=== PATIENT | female | born 1995 | race Caucasian/White ===

== ENCOUNTER 2018-01-31 09:14 | Emergency (ER) | payer BC, OTHER ==
[2018-01-31] MEDS ORDERED: SUCRALFATE 1 GM TABLET PO ONE (10:30)
[2018-01-31] MEDS ORDERED: MAGNE/ALUM HYDROXD 30 ML UCUP ONE (11:05)
[2018-01-31] MEDS ORDERED: LIDOCAINE VISCOUS 2% SOLN 15 ML UDC ONE (11:06)
--- NOTE | 2018-01-31 11:13 | RAD REPORT ---
EXAM DESCRIPTION: US - Abdomen Exam Limited - 01/31/2018 10:31 am COMPARISON: None. FINDINGS: Gallbladder size is normal. No gallstones, wall thickening or pericholecystic fluid. Commo n bile duct is normal with no common duct stone identified. The liver and spleen show no suspicious f indings. The pancreas is normal. No hydronephrosis or suspicious mass in either kidney Aorta is normal is size. No ascites or bulky lymphadenopathy. IMPRESSION: Normal abdominal ultrasound.
--- NOTE | 2018-01-31 11:31 | ER ---
Nurse's Notes [facility] Name: Cameron Rudolph Age: 22 yrs Sex: Female : 1995 Arrival Date: 01/31/2018 Time: 09:19 Bed 20 Private MD: None, None Diagnosis: Gastritis, unspecified Presentation: 01/31 09:26 Presenting complaint: Patient states: Epigastric pain and nausea that started Sunday, sg progressive getting worse, denies F/V/D, denies urinary symptoms at this time. Transition of care: patient was not received from another setting of care. Onset of symptoms was January 31, 2018. Risk Assessment: Do you want to hurt yourself or someone else? Patient reports no desire to harm self or others. Initial Sepsis Screen: Does the patient meet any 2 criteria? No. Patient's initial sepsis screen is negative. Does the patient have a suspected source of infection? No. Patient's initial sepsis screen is negative. Care prior to arrival: None. 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 - Social history:: Smoking status: Patient uses tobacco products, denies chronic smoking, but will smoke occasionally. - Ebola Screening: : Patient negative for fever greater than or equal to 101.5 degrees Fahrenheit, and additional compatible Ebola Virus Disease symptoms Patient denies exposure to infectious person Patient denies travel to an Ebola-affected area in the 21 days before illness onset No symptoms or risks identified at this time. Screenin:00 Abuse screen: Denies threats or abuse. Denies injuries from another. Nutritional aj1 screening: No deficits noted. Tuberculosis screening: No symptoms or risk factors identified. 11:25 Fall Risk None identified. aj1 Assessment: 10:00 General: Appears in no apparent distress. uncomfortable, Behavior is calm, cooperative, aj1 appropriate for age. Pain: Complains of pain in epigastric area and right upper quadrant Pain does not radiate. Pain currently is 2 out of 10 on a pain scale. at worst was 5 out of 10 on a pain scale. Quality of pain is described as "twisting" Pain began 5 days ago Is intermittent, Alleviated by laying in the position. Neuro: Level of Consciousness is awake, alert, obeys commands, Oriented to person, place, time, situation, Speech is normal, Facial symmetry appears normal. Cardiovascular: Patient's skin is warm and dry. Respiratory: Airway is patent Respiratory effort is even, unlabored, Respiratory pattern is regular, symmetrical. GI: Abdomen is flat, non-distended, Bowel sounds present X 4 quads. Abd is soft X 4 quads Abdomen is tender to palpation in epigastric area and right upper quadrant Reports diarrhea, nausea, Patient currently denies vomiting. : No signs and/or symptoms were reported regarding the genitourinary system. EENT: No signs and/or symptoms were reported regarding the EENT system. Derm: No signs and/or symptoms reported regarding the dermatologic system. Skin is pink, warm \\T\\ dry. normal. Musculoskeletal: No signs and/or symptoms reported regarding the musculoskeletal system. Circulation, motion, and sensation intact. 10:10 Reassessment: Patient states that she does not want to do blood work, because she does aj1 not want to be stuck again. If she has to have blood work she would rather just leave. Notified Liang Singh NP. 11:07 Reassessment: Patient appears in no apparent distress at this time. No changes from aj1 previously documented assessment. Patient and/or family updated on plan of care and expected duration. Pain level reassessed. Patient is alert, oriented x 3, equal unlabored respirations, skin warm/dry/pink. 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 Patient declines states she is leaving now. Vital Signs: 09:27 BP 112 / 68; Pulse 91; Resp 17; Temp 99.0; Pulse Ox 99% on R/A; Weight 54.43 kg; Height sg 5 ft. 3 in. (160.02 cm); Pain 5/10; 11:08 BP 116 / 61; Pulse 80; Resp 18; Pulse Ox 99% on R/A; aj1 09:27 Body Mass Index 21.26 (54.43 kg, 160.02 cm) ED Course: 09:19 Patient arrived in ED. sb2 09:19 None, None is Private Physician. sb2 09:26 Arm band placed on. ss 09:27 Triage completed. sg 09:41 Urine collected: clean catch specimen, clear. sg 09:55 Jenn Singh FNP-C is PHCP. snw 09:55 Les Stanford MD is Attending Physician. snw 09:55 Kyra Taylor, RN is Primary Nurse. aj1 10:00 Patient has correct armband on for positive identification. Bed in low position. Call aj1 light in reach. Side rails up X 1. 10:00 No provider procedures requiring assistance completed. aj1 10:05 Missed attempt(s): 20 gauge in right antecubital area. Bleeding controlled, band aid aj1 applied, catheter tip intact. 10:10 Missed attempt(s): 22 gauge in right forearm. Bleeding controlled, band aid applied, aj1 catheter tip intact. 10:31 US Abdomen Limited In Process Unspecified. EDMS 11:25 Patient did not have IV access during this emergency room visit. aj1 Administered Medications: 11:06 Drug: CarafATE 1 grams Route: PO; aj1 11:49 Follow up: Response: No adverse reaction aj1 11:06 Drug: GI Cocktail without - (Maalox Suspension 30 ml, Lidocaine Liquid 2 % 15 aj1 ml) Route: PO; 11:49 Follow up: Response: No adverse reaction aj1 Outcome: 11:25 Discharged to home ambulatory. aj1 11:25 Discharge instructions given to no one, patient left prior to paperwork 11:30 Discharge ordered by . snw 11:40 Patient left the ED. ss Signatures: Dispatcher [employer] EDIL Kyra Taylor, RN RN aj1 Talha Cleaning RN RN Jenn Singh FNP-C FNP-Shannan Good RN RN Christin Collado sb2
--- NOTE | 2018-01-31 11:31 | EDPHYS ---
Physician Documentation [facility] Name: Cameron Rudolph Age: 22 yrs Sex: Female : 1995 Arrival Date: 01/31/2018 Time: 09:19 Bed 20 Private MD: None, None ED Physician Les Stanford HPI: 01/31 11:32 This 22 yrs old Female presents to ER via Ambulatory with complaints of snw Abdominal Pain. 11:32 The patient presents with abdominal pain in the epigastric area. Onset: The snw symptoms/episode began/occurred this morning. The symptoms do not radiate. Associated signs and symptoms: Pertinent positives: intermittent diarrhea for 3-4 days. The symptoms are described as crampy, twisting abdominal pain to epigastric area this am, nausea, no vomiting, no fever. Severity of pain: At its worst the pain was moderate. The patient has not experienced similar symptoms in the past. It is unknown whether or not the patient has recently seen a physician. 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 - Social history:: Smoking status: Patient uses tobacco products, denies chronic smoking, but will smoke occasionally. - Ebola Screening: : Patient negative for fever greater than or equal to 101.5 degrees Fahrenheit, and additional compatible Ebola Virus Disease symptoms Patient denies exposure to infectious person Patient denies travel to an Ebola-affected area in the 21 days before illness onset No symptoms or risks identified at this time. ROS: 11:32 Constitutional: Negative for fever, chills, and weight loss, Eyes: Negative for injury, snw pain, redness, and discharge, ENT: Negative for injury, pain, and discharge, Neck: Negative for injury, pain, and swelling, Cardiovascular: Negative for chest pain, palpitations, and edema, Respiratory: Negative for shortness of breath, cough, wheezing, and pleuritic chest pain, Back: Negative for injury and pain, : Negative for injury, bleeding, discharge, and swelling, MS/Extremity: Negative for injury and deformity, Skin: Negative for injury, rash, and discoloration, Neuro: Negative for headache, weakness, numbness, tingling, and seizure. 11:32 Abdomen/GI: Positive for abdominal pain, diarrhea. Exam: 11:31 Constitutional: This is a well developed, well nourished patient who is awake, alert, snw and in no acute distress. Head/Face: Normocephalic, atraumatic. Eyes: Pupils equal round and reactive to light, extra-ocular motions intact. Lids and lashes normal. Conjunctiva and sclera are non-icteric and not injected. Cornea within normal limits. Periorbital areas with no swelling, redness, or edema. ENT: Nares patent. No nasal discharge, no septal abnormalities noted. Tympanic membranes are normal and external auditory canals are clear. Oropharynx with no redness, swelling, or masses, exudates, or evidence of obstruction, uvula midline. Mucous membranes moist. Neck: Trachea midline, no thyromegaly or masses palpated, and no cervical lymphadenopathy. Supple, full range of motion without nuchal rigidity, or vertebral point tenderness. No Meningismus. Chest/axilla: Normal chest wall appearance and motion. Nontender with no deformity. No lesions are appreciated. Cardiovascular: Regular rate and rhythm with a normal S1 and S2. No gallops, murmurs, or rubs. Normal PMI, no JVD. No pulse deficits. Respiratory: Lungs have equal breath sounds bilaterally, clear to auscultation and percussion. No rales, rhonchi or wheezes noted. No increased work of breathing, no retractions or nasal flaring. Back: No spinal tenderness. No costovertebral tenderness. Full range of motion. Skin: Warm, dry with normal turgor. Normal color with no rashes, no lesions, and no evidence of cellulitis. MS/ Extremity: Pulses equal, no cyanosis. Neurovascular intact. Full, normal range of motion. Neuro: Awake and alert, GCS 15, oriented to person, place, time, and situation. Cranial nerves II-XII grossly intact. Motor strength 5/5 in all extremities. Sensory grossly intact. Cerebellar exam normal. Normal gait. Psych: Awake, alert, with orientation to person, place and time. Behavior, mood, and affect are within normal limits. 11:31 Abdomen/GI: Inspection: abdomen appears normal, Bowel sounds: normal, Palpation: moderate abdominal tenderness, in the epigastric area. Vital Signs: 09:27 BP 112 / 68; Pulse 91; Resp 17; Temp 99.0; Pulse Ox 99% on R/A; Weight 54.43 kg; Height sg 5 ft. 3 in. (160.02 cm); Pain 5/10; 11:08 BP 116 / 61; Pulse 80; Resp 18; Pulse Ox 99% on R/A; aj1 09:27 Body Mass Index 21.26 (54.43 kg, 160.02 cm) sg MDM: 10:10 Patient medically screened. snw 11:33 Data reviewed: vital signs, nurses notes. Data interpreted: Pulse oximetry: on room air snw is 99 %. Interpretation: normal. Counseling: I had a detailed discussion with the patient and/or guardian regarding: the historical points, exam findings, and any diagnostic results supporting the discharge/admit diagnosis, radiology results, the need for outpatient follow up, to return to the emergency department if symptoms worsen or persist or if there are any questions or concerns that arise at home. Special discussion: Based on the patient's Hx, exam, and Dx evaluation, there is no indication for emergent surgery or inpatient Tx. It is understood by the patient/guardian that if the Sx's persist or worsen they need to return immediately for re-evaluation. Based on the history and exam findings, there is no indication for further emergent testing or inpatient evaluation. I discussed with the patient/guardian the need to see the equipment washer for further evaluation of the symptoms. I discussed with the patient/guardian the need to see the primary care provider for further evaluation of the symptoms. 01/31 09:42 Order name: Urine Dipstick--Ancillary (enter results) em1 01/31 09:42 Order name: Urine --Ancillary (enter results) em1 01/31 09:42 Order name: Urine Dipstick-Ancillary (obtain specimen); Complete Time: 09:42 em1 01/31 10:16 Order name: US Abdomen Limited; Complete Time: 11:15 snw 01/31 09:42 Order name: Urine Test (obtain specimen); Complete Time: 09:42 em1 Administered Medications: 11:06 Drug: CarafATE 1 grams Route: PO; aj1 11:49 Follow up: Response: No adverse reaction aj1 11:06 Drug: GI Cocktail without - (Maalox Suspension 30 ml, Lidocaine Liquid 2 % 15 aj1 ml) Route: PO; 11:49 Follow up: Response: No adverse reaction aj1 Disposition: 15:03 Co-signature as Attending Physician, Les Stanford MD. rn Disposition: 01/31/18 11:30 Discharged to Home. Impression: Gastritis, unspecified. - Condition is Stable. - Discharge Instructions: Food Choices to Help Relieve Diarrhea, Adult, Gastritis, Adult. - Prescriptions for Nexium 20 mg Oral Capsule - take 1 capsule by ORAL route once daily; 20 capsule. - Medication Reconciliation Form, Thank You Letter, Antibiotic Education, Prescription Opioid Use form. - Follow up: Private Physician; When: 2 - 3 days; Reason: Recheck today's complaints, Continuance of care, Re-evaluation by your physician. Follow up: Emergency Department; When: As needed; Reason: Worsening of condition. Signatures: Dispatcher [employer] EDKyra Monte RN RN aj1 Talha Cleaning RN RN Jenn Singh, WATER FILTRATION TECHNICIAN-C WATER FILTRATION TECHNICIAN-Csnw Les Stanford MD MD rn Martinez, Juan Luis em1 Shannan Siegel RN RN ss Corrections: (The following items were deleted from the chart) 11:40 11:30 01/31/2018 11:30 Discharged to Home. Impression: Gastritis, unspecified. ss Condition is Stable. Forms are Medication Reconciliation Form, Thank You Letter, Antibiotic Education, Prescription Opioid Use. Follow up: Private Physician; When: 2 - 3 days; Reason: Recheck today's complaints, Continuance of care, Re-evaluation by your physician. Follow up: Emergency Department; When: As needed; Reason: Worsening of condition. snw
[2018-01-31 13:43] LABS: Urine Blood NEGATIVE (NEG); Urine Glucose NEGATIVE (NEG); Urine Protein NEGATIVE (NEG); Urine Specific Gravity 1.025 (1.005-1.030); Urine pH 5.5 (5.0-7.0)
== END 2018-01-31 11:40 | disposition home or self-care (01) ==
LOC: ER 09:14
DX: K29.70 Gastritis, unspecified, without bleeding (principal); F17.200 Nicotine dependence, unspecified, uncomplicated
CPT/HCPCS: 76705; 81003; 81025; 99283

== ENCOUNTER 2019-08-26 16:48 | Emergency (ER) | payer BC, OTHER ==
--- OUTSIDE RECORDS SUMMARY | 2019-08-26 16:51 | XMS REPORT | Summary of Care ---
:1995 Author Organization [facility] - Health Address [address] [place] [id number] Care Team Providers Name Role Phone Pcp, Patient Does Not Have A Primary Care Provider Encounter Details Date Type Department Care Team Description 04/12/2019 Orders Only [facility] Doctor Unassigned, No [address] [facility] [place] [address] [address] [place] [address] Allergies No Known Allergiesdocumented as of this encounter (statuses as of 04/12/2019) Medications No known medicationsdocumented as of this encounter (statuses as of 04/12/2019) Active Problems Problem Noted Date Status post surgical removal of both fallopian tubes 05/08/2018 Acute midline low back pain with left-sided sciatica 04/23/2018 Pelvic adhesions 04/18/2018 History of ectopic 04/18/2018 Anemia of mother in , antepartum 08/08/2017 Substernal chest pain 08/08/2017 Family history of cleft palate 01/17/2017 documented as of this encounter (statuses as of 04/12/2019) Resolved Problems Problem Noted Date Resolved Date Encounter for female sterilization procedure 04/18/2018 05/08/[address] 10/17/2017 05/08/2018 (spontaneous vaginal delivery) 09/06/2017 10/16/2017 Liveborn , of [place] , born in hospital by 09/06/201710/16 vaginal delivery 38 weeks gestation of 09/04/2017 10/16/2017 heart rate/rhythm abnormality, antepartum 09/04/2017 10/16/2017 heart rate/rhythm abnormality affecting management of 09/04/20172017 mother Pain of round ligament affecting , antepartum 08/08/2017 05/08/2018 High-risk , third trimester 07/25/2017 10/16/2017 GBS (group b Streptococcus) UTI complicating , 03/20/2017 10/16/2017 unspecified trimester Anxiety during in first trimester, antepartum 02/07/2017 10/16/2017 Rh negative status during , unspecified trimester 02/07/20172017 Group b Streptococcus urinary tract infection affecting 01/30/2017 10/16/2017 , antepartum, first trimester High-risk , first trimester 01/17/2017 07/25/2017 History of depression, currently 01/17/2017 05/08/2018 documented as of this encounter (statuses as of 04/12/2019) Immunizations Name Administration Dates Next Due Influenza Virus Vaccine Quad IM 3+ YRS 05/09/2017 Rho (d) Immune Globulin 09/06/2017, 06/27/2017 Tdap 07/10/2017 documented as of this encounter Social History Tobacco Use Types Packs/Day Years Used Date Light Tobacco Smoker Cigarettes 0.1 Smokeless Tobacco: Never Used Alcohol Use Drinks/Week oz/Week Comments No Sex Assigned at Date Recorded Not on file Job Start Date Occupation Industry Not on file Not on file Not on file Travel History Travel Start Travel End No recent travel history available. documented as of this encounter Last Filed Vital Signs Not on filedocumented in this encounter Plan of Treatment Date Type Specialty Care Team Description 04/12/2019 Urgent Care Family Medicine Unknown, Attending Afua Delgado FNP [address] [facility] [address] [place] [address] [id number] Health Maintenance Due Date Last Done Comments PNEUMOCOCCAL 0-64 YEARS COMBINED SERIES (1 of 1 - 12/22/1999 PPSV23) HPV VACCINES (1 - Female 3-dose series) 2008 PAP SMEAR 2014 INFLUENZA VACCINE (#1) 2019 05/09/2017 DTaP,Tdap,and Td Vaccines (2 - Td) 07/10/2027 07/10/2017 documented as of this encounter Procedures Procedure Name Priority Date/Time Associated Diagnosis Comments CONSENT/REFUSAL FOR Routine 04/12/2019 3:42 PM DIAGNOSIS AND TREATMENT CDT ASSIGNMENT OF BENEFITS Routine 04/12/2019 3:42 PM CDT documented in this encounter Results Not on filedocumented in this encounter Insurance Payer Benefit Plan / Subscriber ID Effective Phone Address Type Group Dates [facility] - [id number] 2016-Pres [phone] [address] PPO/POS OUT OF STATE ent [id number] [place] [address] [facility] [id number] 2017-Pres PPO/POS HEALTHCARE HEALTHCARE ent PPO/POS documented as of this encounter Advance Directives Name Relationship Healthcare Agent Relationship Communication Jamil Rnoni Spouse Primary healthcare agent Cherie Baldwin Mother [employer] [facility] [phone] agent (Mobile)
--- OUTSIDE RECORDS SUMMARY | 2019-08-26 16:51 | XMS REPORT ---
:1995 Author Organization [facility] Address [address] [place] [address] Dr. Willingham [address] [place] [id number] Care Team Providers Name Role Phone Unavailable Unavailable Unavailable Problems This patient has no known problems. Allergies, Adverse Reactions, Alerts This patient has no known allergies or adverse reactions. Medications This patient has no known medications.
--- OUTSIDE RECORDS SUMMARY | 2019-08-26 16:52 | XMS REPORT | Summary of Care ---
:1995 Author Organization [facility] Address [address] [place] [id number] Care Team Providers Name Role Phone Pcp, Patient Does Not Have A Primary Care Provider Reason for Visit Reason Comments STOMACH ACHE 2 weeks Vomiting 2 weeks Encounter Details Date Type Department Care Team Description 04/12/2019 Urgent Care Critical access hospital Unknown, Attending Non- intractable Urgent Care Afua Delgado, ANNAMARIA [address] [place] [address] vomiting with nausea, [address], unspecified vomiting [address] type (Primary Dx) [place] [id number] Allergies No Known Allergiesdocumented as of this encounter (statuses as of 04/12/2019) Medications Medication Sig Dispensed Refills Start Date End Date Status proMETHazine 12.5 mg Take 1 tablet by 20 tablet 0 04/12/2019 Active tabletIndications: mouth every 6 Non-intractable (six) hours as vomiting with nausea, needed for Nausea unspecified vomiting and Vomiting type (N/V). documented as of this encounter (statuses as [...] 05/08/2018 (spontaneous vaginal delivery) 09/06/2017 10/16/2017 Liveborn infant, of [place] , born in hospital by [...] of this encounter Last Filed Vital Signs Vital Sign Reading Time Taken Comments Blood Pressure 126/87 04/12/2019 3:50 PM CDT Pulse 79 04/12/2019 3:50 PM CDT Temperature 36.6 C (97.8 F) 04/12/2019 3:50 PM CDT Respiratory Rate 16 04/12/2019 3:50 PM CDT Oxygen Saturation 99% 04/12/2019 3:50 PM CDT Inhaled Oxygen Concentration - - Weight 50.8 kg (112 lb) 04/12/2019 3:50 PM CDT Height 160 cm (5' 3") 04/12/2019 3:50 PM CDT Body Mass Index 19.84 04/12/2019 3:50 PM CDT documented in this encounter Patient Instructions Patient InstructionsRaymondAfua jaramillo, ANNAMARIA - 04/12/2019 3:45 PM CDT Nonspecific Vomiting and Diarrhea (Adult) Vomiting and diarrhea can have many causes, including: Helping your body get rid of harmful substances Gastroenteritis caused by viruses, parasites,bacteria, or toxins. Allergy luis side effect ofa food or medicine Severe stress or worry (anxiety) Other illnesses It is often hard to pinpoint an exact cause, even with testing.Vomiting and diarrhea often go awaywithin a day or two without problems. If they continue, though, they can lead to too much loss of fluid (dehydration). This can be serious if not treated. Home care Medicines You may use acetaminophen or NSAID medicines like ibuprofen or naproxen to control fever, unless another medicine was prescribed. If you have chronic liver or kidney disease, talk with your healthcare provider before using these medicines. Also talk with your provider if you've had a stomach ulcer or gastrointestinal bleeding. Don't give aspirin to anyone under 18 years of age who is ill with a fever. Don't use NSAID medicines if you are already taking one for another condition (like arthritis) or are on aspirin (such as for heart disease or after a stroke) If medicines for diarrhea or vomiting were prescribed, take these only as directed. Never take these without a healthcare providers approval. General care If symptoms are severe, rest at home for the next 24 hours, or until you are feeling better. Washing your hands with soap and water, or using alcohol-based hand sanitizeris the best way tostop the spread of infection. Wash your hands after touching anyone who is sick. Wash your hands after using the toilet and before meals. Clean the toilet after each use. Caffeine, tobacco, and alcohol can make the diarrhea, cramping, and pain worse. Remember, caffeine not only isin coffee, but also isin chocolate, some energy drinks, and teas. Diet Water and clear liquids are important so you don't get dehydrated. Drink a small amount at a time. Don't guzzle down the drinks.That may increase your nausea, make cramping worse, andcause the drinksto come back up. Sports drinks may also help. Make sure they are not too sugary, because this can sometimes make things worse. Also, don't drink beverages that are too acidic , like orange juice and grape juice. If you are very dehydrated, sports drinks aren't a good choice. They have too much sugar and not enough electrolytes. In this case, commercially available products called oral rehydration solutions are best. Food Don't force yourself to eat, especially if you have cramps, diarrhea, or vomiting.Eat just a little at a time, and then wait a few minutes before you try to eat more. Don't eat fatty, greasy, spicy, or fried foods. Don't eat dairy products if you have diarrhea. They can make it worse. During the first24 hours(the first full day),follow the diet below: Beverages: Sports drinks, soft drinks without caffeine, mineral water, and decaffeinated tea and coffee Soups: Clear broth, consomm, and bouillon Desserts: Plain gelatin, popsicles, and fruit juice bars During the next 24 hours(the second day),you may add the following to the aboveif you are better. If not, continue what you did the first day: Hot cereal, plain toast, bread, rolls, crackers Plain noodles, rice, mashed potatoes, chicken noodle or rice soup Unsweetened canned fruit (avoid pineapple), bananas Limit fat intake to less than 15 grams per day by avoiding margarine, butter , oils, mayonnaise, sauces, gravies, fried foods, peanut butter, meat, poultry, and fish. Limit fiber. Avoid raw or cooked vegetables, fresh fruits (except bananas) and bran cereals. Limit caffeine and chocolate. No spices or seasonings except salt. During the next 24 hours: Gradually resume a normal diet, as you feel better and your symptoms improve. If at any timeyour symptomsstart getting worse again, go back to clear liquids until you feelbetter. Food preparation If you have diarrhea, youshould not prepare food for others. When preparing foods, wash your hands before and after. Wash your hands or use alcohol-based interior decorator paperhanging after using cutting boards, countertops, and knives that have been in contact with raw food. Keep uncooked meats away from cooked and [id number] foods. Follow-up care Follow up with your healthcare provider, or as advised. Call if you don't get better in the next 2 to 3 days. If a stool (diarrhea) sample was taken,or cultures done, you will be told if they are positive, or if your treatment needs to be changed. You may call as directed for the results. If X-rays were taken, and a radiologist has not yet looked at them, he or she will do so. You will be told if there is a change in the reading, especially if it affects yourtreatment. Call 911 Call 911 if any of these occur: Trouble breathing Chest pain Confusion Severe drowsiness or trouble awakening Fainting or loss of consciousness Rapid heart rate Seizure Stiff neck Severe weakness, dizziness, or lightheadedness When to seek medical advice Call your healthcare provider right away if any of these occur: Bloody or black vomit or stools Severe, steady abdominal pain or any abdominal pain that is getting worse Severe headache or stiff neck An inability to hold down even sips of liquids for more than 12 hours Vomiting that lasts more than 24 hours Diarrhea that lasts more than 24 hours Fever of 100.4F (38.0C) or higher, or as directed by your healthcare provider Yellowish color to your skin or the whites of your eyes Signs of dehydration,such as dry mouth, little urine (less than every 6 hours), or very dark urine Date Last Reviewed: 08/01/201519999795-6665 [employer]. [address] [place] [address], [place] [address]. All rights reserved. This information is not intended as a substitute for professional medical care. Always follow your healthcare professional's instructions. documented in this encounter Progress Notes Afua Delgado FNP - 04/12/2019 3:45 PM CDT Cc: Chief Complaint Patient presents with STOMACH ACHE 2 weeks Vomiting 2 weeks Cameron Rudolph is a 23 year old female presents to UC with concern for stomach pain and vomiting. She's been having nausea and vomiting for 2 weeks. LMP 04/03/2019. Tubal ligation 03/2018. She was taking Trileptal from psychiatry for < 2 weeks for anger management. After being on medication for about 1 weeks she started having nausea/vomiting. Her psychiatrist told her to stop medication. She still continues nausea/vomiting after being off Trileptal for 1 week. Her psychiatrist told her to follow up with PCP/UC. She has vomiting 2-3 times daily usually 30 minutes after eating. Loose BM but not watery 1-2 times daily. She's been taking otc Pepto with little relief. She's lost 14 pounds in thelast 2 weeks. She denies any abdomen pain. Denies any blood in emesis or stool. Denies any fever, chills, body aches, cough, chest pain, sob or dizziness. GI Problem The primary symptoms include weight loss, fatigue, nausea, vomiting and diarrhea. Primary symptoms do not include fever, abdominal pain, melena, hematemesis, jaundice, hematochezia, dysuria, myalgias, arthralgias or rash. The illness began more than 7 days ago. The onset was gradual. The problem has not changed since onset. The illness does not include chills, anorexia, dysphagia, bloating, constipation , back pain or itching. Associated medical issues do not include inflammatory bowel disease, gallstones, liver disease, alcohol abuse, bowel resection, irritable bowel syndrome or diverticulitis. Allergies Cameron has No Known Allergies. Medications No outpatient medications prior to visit. No facility-administered medications prior to visit. Histories Past Medical History: Diagnosis Date Anemia of mother in , antepartum 08/08/2017 Anxiety Anxiety during in first trimester, antepartum 02/07/2017 History of salpingectomy JRA (juvenile rheumatoid arthritis) Past Surgical History: Procedure Laterality Date LAPAROSCOPIC SALPINGECTOMY Bilateral 04/18/2018 Surgeon: Destinee Strong MD; Location: [facility] OR Location REMOVAL, IMPLANTABLE CONTRACEPTIVE DELIVERY SYSTEM Left 04/18/2018 Surgeon: Destinee Strong MD; Location: [facility] [place] Social History Socioeconomic History Marital status: Spouse name: Not on file Number of children: Not on file Years of education: Not on file Highest education level: Not on file Occupational History 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 Social Needs Financial resource strain: Not on file Food insecurity: Worry: Not on file Inability: Not on file Transportation needs: Medical: Not on file Non-medical: Not on file Tobacco Use Smoking status: Light Tobacco Smoker Packs/day: 0.10 Types: Cigarettes Smokeless tobacco: Never Used Substance and Sexual Activity Alcohol use: No Drug use: No Sexual activity: Yes Partners: Male control/protection: None Lifestyle Physical activity: Days per week: Not on file Minutes per session: Not on file Stress: Not on file Relationships Social connections: Talks on phone: Not on file Gets together: Not on file Attends zoroastrianism service: Not on file Active member of club or organization: Not on file Attends meetings of clubs or organizations: Not on file Relationship status: Not on file Intimate partner violence: Fear of current or ex partner: Not on file Emotionally abused: Not on file Physically abused: Not on file Forced sexual activity: Not on file Other Topics Concern Not on file Social History Narrative No domestic abuse or violence. No cats, Samaritan: none Family History Problem Relation Age of Onset Depression Mother defects Sister cleft palate Genetic Brother Depression Maternal Grandmother Arthritis Maternal Grandmother Hypertension Maternal Grandmother Depression Sister Psychiatry Sister Asthma NoFHx Breast Cancer NoFHx Colon Cancer NoFHx Ovarian Cancer NoFHx Uterine Cancer NoFHx Cancer NoFHx Diabetes NoFHx Heart NoFHx High cholesterol NoFHx Mental retardation NoFHx Neurological NoFHx Osteoporosis NoFHx Review of Systems Constitutional: Positive for fatigue and weight loss. Negative for chills and fever. Gastrointestinal: Positive for diarrhea, nausea and vomiting. Negative for abdominal pain, anorexia,bloating, constipation, dysphagia, hematemesis, hematochezia, jaundice and melena. Genitourinary: Negative for dysuria. Musculoskeletal: Negative for arthralgias, back pain and myalgias. Skin: Negative for itching and rash. Endocrine: Positive for weight loss. Vital Signs BP 126/87 | Pulse 79 | Temp 36.6 C (97.8 F) (Oral) | Resp 16 | Ht 5' 3" (1.6 m) | Wt 112 lb(50.8 kg) | LMP 04/03/2019 | SpO2 99% | BMI 19.84 kg/m Physical Exam Constitutional: She is oriented to person, place, and time. She appears well- developed and well-nourished. HENT: Head: Normocephalic and atraumatic. Right Ear: External ear normal. Left Ear: External ear normal. Nose: Nose normal. Mouth/Throat: Oropharynx is clear and moist. Eyes: Conjunctivae are normal. Neck: Normal range of motion. Neck supple. Cardiovascular: Normal rate, regular rhythm and normal heart sounds. Exam reveals no gallop and no friction rub. No murmur heard. Pulmonary/Chest: Effort normal and breath sounds normal. No respiratory distress. She has no wheezes. She has no rales. Abdominal: Soft. Normal appearance and bowel sounds are normal. She exhibits no distension. There isno hepatosplenomegaly. There is no tenderness. There is no rigidity, no rebound, no guarding, no CVAtenderness, no tenderness at McBurney' s point and negative Sims's sign. Musculoskeletal: Normal range of motion. Neurological: She is alert and oriented to person, place, and time. Skin: Skin is warm and dry. Psychiatric: She has a normal mood and affect. Her behavior is normal. Nursing note and vitals reviewed. Assessment/Plan Cameron Rudolph is a 23 year old female presents to with concern for stomach pain and vomiting. 1. Non-intractable vomiting with nausea, unspecified vomiting type - proMETHazine 12.5 mg tablet; Take 1 tablet by mouth every 6 (six) hours as needed for Nausea and Vomiting (N/V). Dispense: 20 tablet; Refill: 0 - strong ER precautions given - go to ER for dehydration or persistent projectile vomiting carlito w/ distended abdomen and/or marked/persistent abdom pain, fever, blood in stool/emesis - set up an appointment to establish care with PCP for Sunday. Needs work up. Plan of care, desired health behaviors, goals, and medication discussed with patient. Education resources provided and reviewed with AVS. Patient/guardian/family verbalized Urgent Care precautions and follow up : 1. Return to clinic if your symptoms should worsen or fail to improve within 72 hours. 2. The care provided in the urgent care was for acute problems only. 3. You should follow up with your primary care provider within 72 hours. 4. Fill and take all your medications as prescribed. 5. Make sure you are staying adequately hydrated. MAY FOLLOW-UP WITH A PROVIDER OF YOUR CHOICE, SUCH : 1. A PHYSICIAN OF YOUR CHOICE OR, IF YOU WISH TO FOLLOW-UP WITHIN THE [facility], MAY TRY THESE OPTIONS (CLINIC APPOINTMENTS AVAILABLE ON [id number] BASIS): 1. SCHEDULE AN APPOINTMENT ONLINE AT WWW.[facility] 2. OR CALL THE [facility] AT OR 3. OR CALL YOUR [facility] PHYSICIAN'S OFFICE DIRECTLY IF YOU ARE ALREADY AN ESTABLISHED [facility] PATIENT. After hours care nurse access center available by calling [phone] 24 hours 7 days per week. Afua YIN [facility] documented in this encounter Plan of Treatment Date Type Specialty Care Team Description 04/14/2019 Office Visit Family Medicine Monae Stanley FNP [address] [address] Health Maintenance Due Date Last Done Comments PNEUMOCOCCAL 0-64 YEARS COMBINED SERIES (1 of 1 - 12/22/1999 PPSV23) HPV VACCINES (1 - Female 3-dose series) 2008 PAP SMEAR 2014 INFLUENZA VACCINE (#1) 2019 05/09/2017 DTaP,Tdap,and Td Vaccines (2 - Td) 07/10/2027 07/10/2017 documented as of this encounter Results Not on filedocumented in this encounter Visit Diagnoses Diagnosis Non-intractable vomiting with nausea, unspecified vomiting type - Primary documented in this encounter Insurance Payer Benefit Plan / Subscriber ID Effective Phone Address Type Group Dates [facility] - [id number] 2016-Pres [phone] PPO/POS OUT OF STATE ent [phone] [place] [address] [facility] [id number] 2017-Pres PPO/POS [employer] ent PPO/POS documented as of this encounter Advance Directives Name Relationship Healthcare Agent Relationship Communication Jamil Rudolph Spouse Primary healthcare agent Cherie Baldwin Mother [facility] [phone] agent (Mobile)
--- OUTSIDE RECORDS SUMMARY | 2019-08-26 16:52 | XMS REPORT | Summary of Care ---
:1995 Author Organization [facility] Address [address] [place] [address] Care Team Providers Name Role Phone Pcp, Patient Does Not Have A Primary Care Provider Reason for Referral MRI/CAT Scan (PREM) Status Reason Specialty Diagnoses / Referred By Referred To Procedures Contact Contact New Request Diagnostic Diagnoses RLQ abdominal pain Vomiting and diarrhea Lizeth, Radiology Procedures CT ABDOMEN PELVIS WO CONTRAST Monae ENVIRONMENTAL WEB CRAWLER [address] [place] [address] (Routine) Status Reason Specialty Diagnoses / Referred By Referred To Procedures Contact Contact New Request Location Gastroenterology Diagnoses RLQ abdominal pain Vomiting and diarrhea Lizeth, Preference Procedures CONSULT/REFERRAL GASTROENTEROLOGY Monae ENVIRONMENTAL WEB CRAWLER [address] [place] [address] Reason for Visit Reason Comments Nausea X 2 weeks Vomiting Diarrhea LAB WORK Encounter Details Date Type Department Care Team Description 04/14/2019 Office Visit [facility] Family Lizeth, Monae, RLQ abdominal pain (Primary Dx); [facility] Vomiting and diarrhea [address] [place], [place] [address] [place] [address] [place] [id number] [phone] Allergies No Known Allergiesdocumented as of this encounter (statuses as of 04/14/2019) Medications Medication Sig Dispensed Refills Start Date End Date Status proMETHazine 12.5 mg Take 1 tablet by 20 tablet 0 04/12/2019 Active tabletIndications: mouth every 6 Non-intractable (six) hours as vomiting with nausea, needed for Nausea unspecified vomiting and Vomiting type (N/V). documented as of this encounter (statuses as of 04/14/2019) Active Problems Problem Noted Date Status post surgical removal of both fallopian tubes 05/08/2018 Acute midline low back pain with left-sided sciatica 04/23/2018 Pelvic adhesions 04/18/2018 History of ectopic 04/18/2018 Anemia of mother in , antepartum 08/08/2017 Substernal chest pain 08/08/2017 Family history of cleft palate 01/17/2017 documented as of this encounter (statuses as of 04/14/2019) Resolved Problems Problem Noted Date Resolved Date [...] as of this encounter (statuses as of 04/14/2019) Immunizations Name Administration Dates Next Due Influenza [...] Sign Reading Time Taken Comments Blood Pressure 111/75 04/14/2019 11:06 AM CDT Pulse 73 04/14/2019 11:06 AM CDT Temperature 36.8 C (98.2 F) 04/14/2019 11:06 AM CDT Respiratory Rate - - Oxygen Saturation - - Inhaled Oxygen Concentration - - Weight 51.3 kg (113 lb) 04/14/2019 11:06 AM CDT Height 160 cm (5' 3") 04/14/2019 11:06 AM CDT Body Mass Index 20.02 04/14/2019 11:06 AM CDT documented in this encounter Patient Instructions Patient InstructionsMonae Stanley FNP - 04/14/2019 11:20 AM CDT Abdominal Pain Abdominal pain is pain in the stomach or belly area. Everyone has this pain from time to time. In many cases it goes away on its own. But abdominal pain can sometimes be due to a serious problem, such as appendicitis. So its important to know when to seek help. Causes of abdominal pain There are many possible causes of abdominal pain. Common causes in adults include: Constipation, diarrhea, or gas Stomach acid flowing back up into the esophagus (acid reflux or heartburn) Severe acid reflux, called GERD (gastroesophageal reflux disease) A sore in the lining of the stomach or small intestine (peptic ulcer) Inflammation of the gallbladder, liver,or pancreas Gallstones or kidney stones Appendicitis Intestinal blockage An internal organ pushing through a muscle or other tissue (hernia) Urinary tract infections In women, menstrual cramps, fibroids, or endometriosis Inflammation or infection of the intestines Diagnosing the cause of abdominal pain Your healthcare provider will do a physical exam help find the cause of your pain. If needed, tests will be ordered. Belly pain has many possible causes. So it can be hard to find the reason for your pain. Giving details about your pain can help. Tell your provider where and when you feel the pain, and what makes it better or worse. Also let your provider know if you have other symptoms such as: Fever Tiredness Upset stomach (nausea) Vomiting Changes in bathroom habits Treating abdominal pain Some causes of pain need emergency medical treatment right away. These include appendicitis or a bowel blockage. Other problems can be treated with rest, fluids, or medicines. Your healthcare provider can give you specific instructions for treatment or self-care based on what is causing your pain. If you have vomiting or diarrhea,sip water or other clear fluids. When you are ready to eat solid foods again, start with small amounts of tkcd-pi-jdobpk, low-fat foods. These include apple sauce, toast, or crackers. When to seek medical care Call 911or go to the hospital right away if you: Cant pass stool and are vomiting Are vomiting blood or have bloody diarrhea or black, tarry diarrhea Have chest, neck, or shoulder pain Feel like you might pass out Have pain in your shoulder blades with nausea Have sudden, severe belly pain Have new, severepain unlike any you have felt before Have a belly that is rigid, hard, and tender to touch Call your healthcare provider if you have: Pain for more [id number] Bloating for more than 2days Diarrhea for more [id number] A fever of 100.4F (38C) or higher, or as directed by your healthcare provider Pain that gets worse Weight loss for no reason Continued lack of appetite Blood in your stool How to prevent abdominal pain Here are some tips to help prevent abdominal pain: Eat smaller amounts of food at one time. Avoid greasy, fried, or other high-fat foods. Avoid foods that give you gas. Exercise regularly. Drink plenty of fluids. To help prevent GERD symptoms: Quit smoking. Reduce alcohol and certain foods that increase stomach acid. Avoid aspirin and bkal-vcz-capqjbf pain and fever medicines (NSAIDS or nonsteroidal anti-inflammatory drugs), if possible Lose extra weight. Finish eating at least 2 hours before you go to bed or lie down. Raise the head of your bed. Date Last Reviewed: 01/28/201619995448-3549 [employer]. [address] [place] [address], [place] [address]. All rights reserved. This information is not intended as a substitute for professional medical care. Always follow your healthcare professional's instructions. documented in this encounter Progress Notes Johanna Gamez - 04/14/2019 11:20 AM CDTVenipuncture Collection performed by clean technique. Total of 1 attempts were made. Slight pressureand a bandage/ dressing were applied to the site(s). The patient experienced no complications. Specimens were sent processed to [facility] laboratories. onae Reveles FNP - 04/14/2019 11:20 AM CDT Cc: Chief Complaint Patient presents with Nausea X 2 weeks Vomiting Diarrhea Cameron Rudolph is a 23 year old female that presents to the clinic for nausea, vomiting, diarrhea, and weight loss of 14lbs over the past 2 weeks. She was seen in urgent care 2 days ago and prescribed promethazine. She reports the Promethazine helps but causes drowsiness. She has also been taking Pepto for her symptoms with some relief but symptoms return. She also states that a couple weeks ago her city was under a mandatory water boil due to possible EColi in the water. She was not using water out of the faucet but continued using ice from the rice drier operator. She stopped her Topimax about 1 week ago due to possibly having side effects. Diarrhea Quality: Semi-solid and watery Severity: Moderate Onset quality: Sudden Number of episodes: 3/day Duration: 2 weeks Timing: Constant Progression: Unchanged Relieved by: promethazine and pepto. Worsened by: Nothing Associated symptoms: abdominal pain, chills and vomiting Associated symptoms: no arthralgias, no fever and no myalgias Allergies Cameron has No Known Allergies. Medications Outpatient Medications Prior to Visit Medication Sig Dispense Refill proMETHazine 12.5 mg tablet Take 1 tablet by mouth every 6 (six) hours as needed for Nausea and Vomiting (N/V). 20 tablet 0 No facility-administered medications prior to visit. Histories Past Medical History: Diagnosis Date Anemia of mother in , antepartum 08/08/2017 Anxiety Anxiety during in first trimester, antepartum 02/07/2017 History of salpingectomy JRA (juvenile rheumatoid arthritis) Past Surgical History: Procedure Laterality Date LAPAROSCOPIC SALPINGECTOMY Bilateral 04/18/2018 Surgeon: Destinee Strong [place]; [place] [facility] [place] IMPLANTABLE CONTRACEPTIVE DELIVERY SYSTEM Left 04/18/2018 Surgeon: Destinee Strong MD; [place] [facility] [place] Social History Socioeconomic History Marital status: Spouse name: Not on file Number of children: Not on file Years of education: Not on file Highest education level: Not on file Occupational History Occupation: [employer] Social Needs Financial resource strain: Not on [...] file Gets together: Not on file Attends buddhist service: Not on file Active member of [...] No domestic abuse or violence. No cats, Faith: none Family History Problem Relation Age of [...] NoFHx Review of Systems Constitutional: Positive for appetite change and chills. Negative for fever. Gastrointestinal: Positive for abdominal pain, diarrhea, nausea and vomiting. Negative for blood in stool and constipation. Musculoskeletal: Negative for arthralgias and myalgias. Skin: Negative for rash. Neurological: Positive for weakness (generalized). Psychiatric/Behavioral: Negative for agitation and confusion. Vital Signs BP 111/75 | Pulse 73 | Temp 36.8 C (98.2 F) (Oral) | Ht 5' 3" (1.6 m) | Wt 113 lb (51.3 kg)| LMP 04/03/2019 | BMI 20.02 kg/m Physical Exam Constitutional: She is oriented to person, place, and time. She appears well- developed and well-nourished. No distress. HENT: Head: Normocephalic and atraumatic. Eyes: Conjunctivae are normal. Cardiovascular: Normal rate, regular rhythm, normal heart sounds and intact distal pulses. Pulmonary/Chest: Effort normal and breath sounds normal. Abdominal: Soft. Normal appearance and bowel sounds are normal. There is tenderness in the right lower quadrant. There is tenderness at McBurney's point. There is no rigidity and no CVA tenderness. Neurological: She is alert and oriented to person, place, and time. Gait normal. Skin: Skin is warm and dry. No rash noted. Psychiatric: She has a normal mood and affect. Her behavior is normal. Thought content normal. Nursing note and vitals reviewed. Recent Labs 04/14/19 POCTPREG Negative POCT U SP GRAV (mg/dl) Date Value 04/14/2019 1.015 POCT PH U (mg/dl) Date Value 04/14/2019 7 POCT U LEUK EST (no units) Date Value 04/14/2019 trace POCT U NIT (no units) Date Value 04/14/2019 neg POCT U PROT (no units) Date Value 04/14/2019 trace POCT U GLU (no units) Date Value 04/14/2019 neg POCT U KETONE (no units) Date Value 04/14/2019 neg POCT U UROBILI (mg/dl) Date Value 04/14/2019 normal POCT U BILI (no units) Date Value 04/14/2019 neg POCT U BLD (no units) Date Value 04/14/2019 trace POCT U COLOR (no units) Date Value 04/14/2019 dark POCT U APPEAR (no units) Date Value 04/14/2019 cloudy Assessment/Plan 1. RLQ abdominal pain - POCT URINALYSIS W SPECIFIC GRAVITY - COMP. METABOLIC PANEL (51302) - POCT TEST - CBC WITH DIFFERENTIAL - CONSULT/REFERRAL GASTROENTEROLOGY - CT ABDOMEN PELVIS WO CONTRAST; Future - URINE CULTURE - ER precautions for worsening symptoms including increased abdominal pain, blood in stool, uncontrolled vomiting or diarrhea, or high fever. 2. Vomiting and diarrhea - POCT URINALYSIS W SPECIFIC GRAVITY - COMP. METABOLIC PANEL (67416) - POCT TEST - CBC WITH DIFFERENTIAL - CONSULT/REFERRAL GASTROENTEROLOGY - CT ABDOMEN PELVIS WO CONTRAST; Future - URINE CULTURE - if symptoms don't improve will need to have a stool sample collected to further evaluated. Plan of care, desired health behaviors, goals, and medication discussed with patient. Education resources provided and reviewed with AVS. Patient/guardian/family verbalized understanding & agrees to plan of care. This visit did not involve counseling and coordination that comprised more than 50% of the visit time. If applicable, the [place] [employer] database was accessed to review any controlled substance prescription claims data. The [employer] prescription claims data in [employer] was reviewed to assess patient compliance with the medication treatment plan. Monae Stanley APRN, FNP-C 04/14/2019 11:42 AM documented in this encounter Plan of Treatment Name Type Priority Associated Diagnoses Order Schedule CBC WITH DIFF LAB Routine RLQ abdominal pain Ordered: 04/14/2019 Vomiting and diarrhea COMP. METABOLIC PANEL LAB Routine RLQ abdominal pain Ordered: 04/14/2019 ([id number]) Vomiting and diarrhea CBC WITH DIFFERENTIAL LAB Routine RLQ abdominal pain Ordered: 04/14/[address] ABDOMEN PELVIS WO IMAGING PREM RLQ abdominal pain Expected: CONTRAST Vomiting and diarrhea 04/14/2019, Expires: 04/14/2020 URINE CULTURE LAB Routine RLQ abdominal pain Ordered: 04/14/2019 Vomiting and diarrhea Health Maintenance Due Date Last Done Comments PNEUMOCOCCAL 0-64 YEARS COMBINED SERIES (1 of 1 - 12/22/1999 PPSV23) HPV VACCINES (1 - Female 3-dose series) 2008 PAP SMEAR 2014 INFLUENZA VACCINE (#1) 2019 05/09/2017 DTaP,Tdap,and Td Vaccines (2 - Td) 07/10/2027 07/10/2017 documented as of this encounter Procedures Procedure Name Priority Date/Time Associated Diagnosis Comments POCT TEST Routine 04/14/2019 RLQ abdominal pain Results for this Vomiting and diarrhea procedure are in the results section. POCT URINALYSIS Routine 04/14/2019 RLQ abdominal pain Results for this Vomiting and diarrhea procedure are in the results section. documented in this encounter Results POCT TEST (04/14/2019) POCT PREG Negative On board controls acceptable Yes with C Line POCT PREG LOT # POCT PREG TEST DATE Specimen Urine - URINE, CLEAN CATCH POCT URINALYSIS W SPECIFIC GRAVITY (04/14/2019) POCT U SP GRAV 1.015 1.005 - 1.025 mg/dl POCT PH U 7 5 - 8 mg/dl POCT U LEUK EST trace Negative - Negative POCT U NIT neg Negative - Negative POCT U PROT trace Negative - Negative POCT U GLU neg Negative - Negative POCT U KETONE neg Negative - Negative POCT U UROBILI normal 0.2 - 1 mg/dl POCT U BILI neg Negative - Negative POCT U BLD trace Negative - Negative POCT U COLOR dark POCT U APPEAR cloudy Specimen Urine - URINE, CLEAN CATCH documented in this encounter Visit Diagnoses Diagnosis RLQ abdominal pain - Primary Abdominal pain, right lower quadrant Vomiting and diarrhea Vomiting alone documented in this encounter Insurance Payer Benefit Plan / Subscriber ID Effective Phone Address Type Group Dates [facility] - [id number] 2016-Pres [phone] [address] PPO/POS OUT OF STATE ent [phone] [id number] [place], [place] [id number] [place] [address] [id number] 2017-Pres PPO/POS HEALTHCARE HEALTHCARE ent PPO/POS CIGNA CIGNA II [id number] 2018-Pres HMO/PPO/ ent POS documented as of this encounter Advance Directives Name Relationship Healthcare Agent Relationship Communication Jamil Rudolph Spouse Primary healthcare agent Cherie Baldwin [facility] [phone] agent ([place])
--- OUTSIDE RECORDS SUMMARY | 2019-08-26 16:53 | XMS REPORT | Summary of Care ---
:1995 Author Organization [facility] Address [address] [place] [address] Care Team Providers Name Role Phone Monae Stanley Primary Care Provider Reason for Referral MRI/CAT Scan (PREM) Status Reason Specialty Diagnoses / Referred By Referred To Procedures Contact Contact New Request Diagnostic Diagnoses RLQ abdominal pain Lizeth, Radiology Procedures CT ABDOMEN PELVIS W CONTRAST ANNAMARIA Licona [address] [place] [address] MRI/CAT Scan (PREM) Status Reason Specialty Diagnoses / Referred By Referred To Procedures Contact Contact Closed Diagnostic Diagnoses RLQ abdominal pain Vomiting and diarrhea Lizeth, Radiology Procedures CT ABDOMEN PELVIS WO CONTRAST BIRGIT LiconaP [address] [place] [address] (Routine) Status Reason Specialty Diagnoses / Referred By Referred To Procedures Contact Contact New Request Location Gastroenterology Diagnoses RLQ abdominal pain Vomiting and diarrhea Lizeth, Charafeddin Preference Procedures CONSULT/REFERRAL GASTROENTEROLOGY yue Licona Nizar C, FNP MD [address] [facility] [address] [place] [address] [id number] Phone: [phone] Fax: Fax: Reason for Visit Reason Comments Nausea X 2 weeks Vomiting Diarrhea LAB WORK Encounter Details Date Type Department Care Team Description 04/14/2019 Office Visit [facility] Family Monae Stanley, SEAN abdominal pain (Primary Dx); Medicine - [place] 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 [place] [address] [address] [place] [address] [place] [address] Allergies No Known Allergiesdocumented as of this [...] foods again, start with small amounts of qirl-tm-jksqqe, low-fat foods. These include apple sauce, toast, [...] provider if you have: Pain for more [id number] Bloating for more than 2days Diarrhea for more [id number] A fever of 100.4F (38C) or higher, [...] that increase stomach acid. Avoid aspirin and zzpf-cdw-zptmoud pain and fever medicines (NSAIDS or nonsteroidal anti-inflammatory drugs), if possible Lose extra weight. Finish eating at least 2 hours before you go to bed or lie down. Raise the head of your bed. Date Last Reviewed: 01/28/201619998507-4960 [employer]. [address] [place] [address]. All rights reserved. This information is not [...] no complications. Specimens were sent processed to [facility] laboratories. 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 She stopped her Topimax about 1 week [...] Bilateral 04/18/2018 Surgeon: Destinee Strong MD; Location: [place] REMOVAL, IMPLANTABLE CONTRACEPTIVE DELIVERY SYSTEM Left 04/18/2018 Surgeon: Destinee Strong MD; Location: [facility] Social History Socioeconomic History Marital status: Spouse [...] file Gets together: Not on file Attends lutheran service: Not on file Active member of [...] No domestic abuse or violence. No cats, Jehovah'S Witness: none Family History Problem Relation Age of [...] W SPECIFIC GRAVITY - COMP. METABOLIC PANEL (59552) - POCT TEST - CBC WITH DIFFERENTIAL - CONSULT/REFERRAL GASTROENTEROLOGY - CT ABDOMEN PELVIS WO CONTRAST; Future - URINE CULTURE - ER precautions for worsening symptoms including increased abdominal pain, blood in stool, uncontrolled vomiting or diarrhea, or high fever. 2. Vomiting and diarrhea - POCT URINALYSIS W SPECIFIC GRAVITY - COMP. METABOLIC PANEL (26801) - POCT TEST - CBC WITH DIFFERENTIAL [...] of the visit time. If applicable, the [facility] database was accessed to review any controlled substance prescription claims data. [facility] [place] prescription claims data in [employer] was reviewed to assess patient compliance with the medication treatment plan. Monae Stanley APRN, ANNAMARIA-C 04/14/2019 11:42 AM documented in this encounter Plan of Treatment Date Type Specialty Care Team Description 04/14/2019 Hospital Encounter Radiology Monae Stanley FNP Arrived [address] [id number] Name Type Priority Associated Diagnoses Order Schedule CBC WITH DIFF LAB Routine RLQ abdominal pain Ordered: 04/14/2019 Vomiting and diarrhea COMP. METABOLIC PANEL LAB Routine RLQ abdominal pain Ordered: 04/14/2019 ([id number]) Vomiting and diarrhea CBC WITH DIFFERENTIAL LAB Routine RLQ abdominal pain Ordered: 04/14/[address] ABDOMEN PELVIS WO IMAGING PREM RLQ abdominal pain Expected: CONTRAST Vomiting and diarrhea 04/14/2019, Expires: 04/14/2020 URINE CULTURE LAB Routine RLQ abdominal pain Ordered: 04/14/[address] ABDOMEN PELVIS W IMAGING PREM RLQ abdominal pain Expected: CONTRAST 04/14/2019, Expires: 04/14/2020 Health Maintenance Due Date Last Done Comments [...] ID Effective Phone Address Type Group Dates [facility] - [id number] 2016-Pres [phone] [address] PPO/POS OUT OF STATE ent [phone] [id number] [place] [address] [facility] [id number] 2017-Pres PPO/POS HEALTHCARE HEALTHCARE ent PPO/POS CIGNA CIGNA II [id number] 2018-Pres HMO/PPO/ ent POS documented as of this encounter Advance Directives Name Relationship Healthcare Agent Relationship Communication Jamil Rudolph Spouse Primary healthcare agent Cherie Baldwin Mother [facility] healthcare [phone] agent ([place])
--- OUTSIDE RECORDS SUMMARY | 2019-08-26 16:53 | XMS REPORT | Summary of Care ---
:1995 Author Organization [facility] Address [address] [place] [address] Care Team Providers Name Role Phone Pcp, Patient Does Not Have A Primary Care Provider Reason for Referral MRI/CAT Scan (PREM) Status Reason Specialty Diagnoses / Referred By Referred To Procedures Contact Contact New Request Diagnostic Diagnoses RLQ abdominal pain Vomiting and diarrhea Lizeth, Radiology Procedures CT ABDOMEN PELVIS WO CONTRAST Monae HORTICULTURE WORKER [address] [place] [address] (Routine) Status Reason Specialty Diagnoses / Referred By Referred To Procedures Contact Contact New Request Location Gastroenterology Diagnoses RLQ abdominal pain Vomiting and diarrhea Lizeth, Preference Procedures CONSULT/REFERRAL GASTROENTEROLOGY Monae HORTICULTURE WORKER [address] [place] [id number] Reason for Visit Reason Comments Nausea X 2 weeks Vomiting Diarrhea LAB WORK Encounter Details Date Type Department Care Team Description 04/14/2019 Office Visit [facility] Family Lizeth, Monae, RLQ abdominal pain (Primary Dx); [facility] Vomiting and diarrhea [address] [place] [address] [address] [place] [address] [place] [id number] [phone] Allergies No Known Allergiesdocumented as of this [...] foods again, start with small amounts of yyns-xk-addnzd, low-fat foods. These include apple sauce, toast, [...] provider if you have: Pain for more [id number] Bloating for more than 2days Diarrhea for more qfbh6gngc A fever of 100.4F (38C) or higher, [...] that increase stomach acid. Avoid aspirin and bcof-kts-mrwgvgi pain and fever medicines (NSAIDS or nonsteroidal anti-inflammatory drugs), if possible Lose extra weight. Finish eating at least 2 hours before you go to bed or lie down. Raise the head of your bed. Date Last Reviewed: 01/28/201619994668-1379 The [employer]. [address] [place] [address], [place] [address]. All rights reserved. This information is not [...] no complications. Specimens were sent processed to [facility] laboratories. onae Reveles FNP - 04/14/2019 11:20 [...] faucet but continued using ice from the cash management officer. She stopped her Topimax about 1 week [...] Bilateral 04/18/2018 Surgeon: Destinee Strong MD; [place] [facility] [place], IMPLANTABLE CONTRACEPTIVE DELIVERY SYSTEM Left 04/18/2018 Surgeon: Destinee Strong MD; [place] [facility] [place] Social History Socioeconomic History Marital status: Spouse name: Not on file Number of children: Not on file Years of education: Not on file Highest education level: Not on file Occupational History Occupation: [employer] Social Needs Financial resource strain: Not on [...] file Gets together: Not on file Attends sikh service: Not on file Active member of [...] No domestic abuse or violence. No cats, Tenriism: none Family History Problem Relation Age of [...] W SPECIFIC GRAVITY - COMP. METABOLIC PANEL (53170) - POCT TEST - CBC WITH DIFFERENTIAL - CONSULT/REFERRAL GASTROENTEROLOGY - CT ABDOMEN PELVIS WO CONTRAST; Future - URINE CULTURE - ER precautions for worsening symptoms including increased abdominal pain, blood in stool, uncontrolled vomiting or diarrhea, or high fever. 2. Vomiting and diarrhea - POCT URINALYSIS W SPECIFIC GRAVITY - COMP. METABOLIC PANEL (70304) - POCT TEST - CBC WITH DIFFERENTIAL [...] of the visit time. If applicable, the [place] Internet database was accessed to review any controlled substance prescription claims data. The [employer] prescription claims data in [employer] was reviewed to assess patient compliance with the medication treatment plan. Monae Stanley APRN, FNP-C 04/14/2019 11:42 AM documented in this encounter Plan of Treatment Name Type Priority Associated Diagnoses Order Schedule CBC WITH DIFF LAB Routine RLQ abdominal pain Ordered: 04/14/2019 Vomiting and diarrhea COMP. METABOLIC PANEL LAB Routine RLQ abdominal pain Ordered: 04/14/2019 (57286) Vomiting and diarrhea CBC WITH DIFFERENTIAL LAB [...] ID Effective Phone Address Type Group Dates [facility] - [id number] 2016-Pres [phone] [address] PPO/POS OUT OF STATE ent [id number] [place], [place] [id number] [place] [address] [id number] 2017-Pres PPO/POS HEALTHCARE HEALTHCARE ent PPO/POS CIGNA CIGNA II [id number] 2018-Pres HMO/PPO/ ent POS documented as of this encounter Advance Directives Name Relationship Healthcare Agent Relationship Communication Jamil Rudolph Spouse Primary healthcare agent Cherie Baldwin [facility] [phone] agent (Mobile)
--- OUTSIDE RECORDS SUMMARY | 2019-08-26 16:54 | XMS REPORT | Summary of Care ---
:1995 Author Organization [facility] Address [address] [place] [address] Care Team Providers Name Role Phone Monae Stanley Primary Care Provider Reason for Referral MRI/CAT Scan (PREM) Status Reason Specialty Diagnoses / Referred By Referred To Procedures Contact Contact New Request Diagnostic Diagnoses RLQ abdominal pain Lizeth, Radiology Procedures CT ABDOMEN PELVIS W CONTRAST ANNAMARIA Licona [address] [place] [address] MRI/CAT Scan (PREM) Status Reason Specialty Diagnoses / Referred By Referred To Procedures Contact Contact Authorized Diagnostic Diagnoses RLQ abdominal pain Vomiting and diarrhea Lizeth, Radiology Procedures CT ABDOMEN PELVIS WO CONTRAST CHG CT SCAN,ABDOMENT AND PELVIS,W/O CONTRAST CHG CT SCAN,ABDOMENT AND PELVIS,W CONTRAST ANNAMARIA Licona [address] [place] [address] (Routine) Status Reason Specialty Diagnoses / Referred By Referred To Procedures Contact Contact New Request Location Gastroenterology Diagnoses RLQ abdominal pain Vomiting and diarrhea Lizeth, Charafeddin Preference Procedures CONSULT/REFERRAL GASTROENTEROLOGY yue Licona, ANNAMARIA Culver MD [address] [place] [address] [address] [place] [address] [address] Phone: [phone] Fax: Fax: Reason for Visit Reason Comments Nausea X 2 weeks Vomiting Diarrhea LAB WORK Encounter Details Date Type Department Care Team Description 04/14/2019 Office Visit [facility] Family Monae Stanley, SEAN abdominal pain (Primary Dx); Medicine - [place] MATERIALS DEVELOPMENT ENGINEER Vomiting and diarrhea; [address] [facility] [place]itis [place], [place] [address] [address] [place] [address] [place] [address] [phone] Allergies No Known Allergiesdocumented as of this encounter (statuses as of 04/14/2019) Medications Medication Sig Dispensed Refills Start Date End Date Status proMETHazine 12.5 mg Take 1 tablet by 20 tablet 0 04/12/2019 Active tabletIndications: mouth every 6 Non-intractable (six) hours as vomiting with nausea, needed for Nausea unspecified vomiting and Vomiting type (N/V). azithromycin 500 mg Take 1 tablet by 3 tablet 0 04/14/2019 04/17/2019 Active tabletIndications: mouth daily for 3 Colitis days. documented as of this encounter (statuses as [...] foods again, start with small amounts of rslq-qa-pgpccd, low-fat foods. These include apple sauce, toast, [...] provider if you have: Pain for more dftn2zczq Bloating for more than 2days Diarrhea for more wdni8celz A fever of 100.4F (38C) or higher, [...] that increase stomach acid. Avoid aspirin and queo-vtv-lpcvbrm pain and fever medicines (NSAIDS or nonsteroidal anti-inflammatory drugs), if possible Lose extra weight. Finish eating at least 2 hours before you go to bed or lie down. Raise the head of your bed. Date Last Reviewed: 01/28/201619994681-9989 The [employer]. [address] [place] [address]. All rights reserved. This information is not [...] no complications. Specimens were sent processed to [facility] laboratories. Monae Carroll FNP - 04/14/2019 11:20 [...] faucet but continued using ice from the founder and chief executive officer. She stopped her Topimax about 1 [...] Bilateral 04/18/2018 Surgeon: Destinee Strong MD; [place] [facility] [place]OVAL, IMPLANTABLE CONTRACEPTIVE DELIVERY SYSTEM Left 04/18/2018 Surgeon: Destinee Strong MD; Location: [facility] Social History Socioeconomic History Marital status: Spouse [...] file Gets together: Not on file Attends catholic service: Not on file Active member of [...] No domestic abuse or violence. No cats, Orthodoxy: none Family History Problem Relation Age of [...] W SPECIFIC GRAVITY - COMP. METABOLIC PANEL (66878) - POCT TEST - CBC WITH DIFFERENTIAL - CONSULT/REFERRAL GASTROENTEROLOGY - CT ABDOMEN PELVIS WO CONTRAST; Future - URINE CULTURE - ER precautions for worsening symptoms including increased abdominal pain, blood in stool, uncontrolled vomiting or diarrhea, or high fever. 2. Vomiting and diarrhea - POCT URINALYSIS W SPECIFIC GRAVITY - COMP. METABOLIC PANEL (31478) - POCT TEST - CBC WITH DIFFERENTIAL [...] of the visit time. If applicable, the [place] FOOD SERVICE HELPER database was accessed to review any controlled substance prescription claims data. The [employer] prescription claims data in [employer] was reviewed to assess patient compliance with the medication treatment plan. Monae Stanley APRN, FNP-C 04/14/2019 11:42 AM documented in this encounter Plan of Treatment Name Type Priority Associated Diagnoses Order Schedule CT ABDOMEN PELVIS WO IMAGING PREM RLQ abdominal pain Expected: 04/14/2019, CONTRAST Vomiting and diarrhea Expires: 04/14/2020 URINE CULTURE LAB Routine RLQ [...] encounter Procedures Procedure Name Priority Date/Time Associated Comments Diagnosis CBC WITH DIFFERENTIAL Routine 04/14/2019 11:40 RLQ abdominal pain Results for this AM CDT Vomiting and procedure are in diarrhea the results section. CBC WITH DIFF Routine 04/14/2019 11:40 RLQ abdominal pain Results for this AM CDT Vomiting and procedure are in diarrhea the results section. COMP. METABOLIC PANEL Routine 04/14/2019 11:40 RLQ abdominal pain Results for this (35503) AM CDT Vomiting and procedure are in diarrhea the results section. POCT TEST Routine 04/14/2019 RLQ abdominal pain Results for this Vomiting and procedure are in diarrhea the results section. POCT URINALYSIS Routine 04/14/2019 RLQ abdominal pain Results for this Vomiting and procedure are in diarrhea the results section. documented in this encounter Results CT ABDOMEN PELVIS W CONTRAST (04/14/2019 1:59 PM CDT) Specimen Impressions Performed At 1. Mild nonspecific mucosal prominence of the transverse colon and PACS/VR/DOSE descending colon is probably related to partial distention, however can also be seen with colitis. Please correlate 2. Low-density lesion in the liver and one in the right kidney are probably cysts. These can be confirmed with ultrasound Narrative Performed At * * * * * * * * ORIGINAL REPORT * * * * * * * * PACS/VR/DOSE EXAM: CT SCAN OF THE ABDOMEN AND PELVIS WITH CONTRAST HISTORY:Abd pain, acute, generalized RLQ abdominal pain, r/o appendicitis TECHNIQUE:3 mm axial images are obtained from diaphragmatic domes to symphysis pubis following intravenous administration of 120 mL of Omnipaque 350. Sagittal and coronal preformation the carried out. COMPARISON: None FINDINGS: The visualized lung bases are clear. No pleural effusion is present. Heart size is normal. The liver is normal in size. A well-circumscribed 1 cm low-density lesion is present in segment II of the liver. No arterially enhancing masses are present. Gallbladder is normal. No calcified gallstones are seen. No biliary tree dilation is appreciated. Spleen, pancreas and adrenal glands are normal. Kidneys are normal in size and shape. No renal stone or hydronephrosis is present. A well-circumscribed low-density lesion is present in the inferior pole of the right kidney measuring 1.5 cm in size with CT density of 23 Hounsfield units. Abdominal aorta is normal in caliber. No free fluid or free air is seen in the abdomen. No enlarged retroperitoneal lymph nodes are seen. There is no evidence of bowel obstruction. Bowel loops are normal in size. The appendix is normal. Mild mucosal thickening is seen involving the transverse colon as well as descending colon. The uterus and urinary bladder are normal. No free fluid is seen in the pelvis. No enlarged lymph nodes are seen. No suspicious bony abnormality is present. Procedure Note [facility], Radiant Results Inft User - 04/14/2019 2:36 PM CDT * * * * * * * * ORIGINAL REPORT * * * * * * * * EXAM: CT SCAN OF THE ABDOMEN AND PELVIS WITH CONTRAST HISTORY: Abd pain, acute, generalized RLQ abdominal pain, r/o appendicitis TECHNIQUE:3 mm axial images are obtained from diaphragmatic domes to symphysis pubis following intravenous administration of 120 mL of Omnipaque 350. Sagittal and coronal preformation the carried out. COMPARISON: None FINDINGS: The visualized lung bases are clear. No pleural effusion is present. Heart size is normal. The liver is normal in size. A well-circumscribed 1 cm low-density lesion is present in segment II of the liver. No arterially enhancing masses are present. Gallbladder is normal. No calcified gallstones are seen. No biliary tree dilation is appreciated. Spleen, pancreas and adrenal glands are normal. Kidneys are normal in size and shape. No renal stone or hydronephrosis is present. A well-circumscribed low-density lesion is present in the inferior pole of the right kidney measuring 1.5 cm in size with CT density of 23 Hounsfield units. Abdominal aorta is normal in caliber. No free fluid or free air is seen in the abdomen. No enlarged retroperitoneal lymph nodes are seen. There is no evidence of bowel obstruction. Bowel loops are normal in size. The appendix is normal. Mild mucosal thickening is seen involving the transverse colon as well as descending colon. The uterus and urinary bladder are normal. No free fluid is seen in the pelvis. No enlarged lymph nodes are seen. No suspicious bony abnormality is present. IMPRESSION 1. Mild nonspecific mucosal prominence of the transverse colon and descending colon is probably related to partial distention, however can also be seen with colitis. Please correlate 2. Low-density lesion in the liver and one in the right kidney are probably cysts. These can be confirmed with ultrasound Performing Organization Address City/State/Zipcode Phone Number PACS/VR/DOSE CBC WITH DIFFERENTIAL (04/14/2019 11:40 AM CDT) WBC 8.73 4.30 - 11.10 [facility] 10*3/L [facility] RBC 4.74 3.93 - 5.25 [facility] 10*6/L [facility] HGB 13.0 11.6 - 15.0 [facility] g/dL [facility] HCT 39.3 35.7 - 45.2 % [facility] MCV 82.9 80.6 - 95.5 fL [facility] MCH 27.4 25.9 - 32.8 pg [facility] MCHC 33.1 31.6 - 35.1 [facility] g/dL [facility] RDW-SD 37.5 (L) 39.0 - 49.9 fL [facility] RDW-CV 12.4 12.0 - 15.5 % [facility] PLT 249 166 - 358 [facility] 10*3/L HOSPITAL LAB[facility]ORY MPV 11.2 9.5 - 12.9 fL [facility] NRBC/100 WBC 0.0 0.0 - 10.0 /100 [facility] WBCs [facility] NRBC x10^3 <0.01 10*3/L [facility] GRAN MAT (NEUT) % 52.7 % [facility] IMM GRAN % 0.20 % [facility] LYMPH % 37.0 % [facility] MONO % 4.9 % [facility] EOS % 4.6 % [facility] BASO % 0.6 % [facility] GRAN MAT x10^3(ANC) 4.60 1.88 - 7.09 [facility] 10*3/uL HOSPITAL LABORATORY IMM GRAN x10^3 <0.03 0.00 - 0.06 [facility] 10*3/uL HOSPITAL LAB[facility]ORY LYMPH x10^3 3.23 1.32 - 3.29 [facility] 10*3/uL HOSPITAL LAB[facility]ORY MONO x10^3 0.43 0.33 - 0.92 [facility] 10*3/uL [facility] EOS x10^3 0.40 (H) 0.03 - 0.39 [facility] 10*3/uL [facility] BASO x10^3 0.05 0.01 - 0.[address]/[facility] LABORATORY Specimen Blood - ARM, LEFT Performing Organization Address City/State/Zipcode Phone Number [facility] CLIA: [id number], [address] [place] [address] COMP. METABOLIC PANEL (67935) (04/14/2019 11:40 AM CDT) NA 144 135 - 145 [facility] mmol/L [facility] K 4.3 3.5 - 5.0 [facility] mmol/L [facility] CL 107 98 - 108 mmol/L [facility] CO2 TOTAL 28 23 - 31 mmol/L [facility] AGAP 9 2 - 16 [facility] BUN 8 7 - 23 mg/dL [facility] GLUCOSE 84 70 - 110 mg/dL [facility] CREATININE 0.60 0.50 - 1.04 [facility] mg/dL [facility] TOTAL BILI 0.3 0.1 - 1.1 mg/dL [facility] CALCIUM 9.7 8.6 - 10.6 [facility] mg/dL [facility] T PROTEIN 7.2 6.3 - 8.2 g/dL [facility] ALBUMIN 4.4 3.5 - 5.0 g/dL [facility] ALK PHOS 37 34 - 122 U/L [facility] ALT(SGPT) 17 9 - 51 U/L [facility] AST(SGOT) 47 (H) 13 - 40 U/L [facility] eGFR Calculation 121.8 mL/min/1.73m2 [facility] (Non-) [facility] eGFR Calculation 147.6 mL/min/1.73m2 [facility] () [facility] Specimen Blood - ARM, LEFT Narrative Performed At Association of Glomerular Filtration Rate (GFR) [facility] and Staging of Kidney Disease* + + +- + | GFR (mL/min/1.73 m2)| With Kidney Damage|Without Kidney Damage + + +- + |>90| Stage one| Normal + + +- + |60-89|S tage two| Decreased GFR + + +- + |30-59|S tage three| Stage three + + +- + |15-29|S tage four | Stage four + + +- + |<15 (or dialysis)|Stage five | Stage five + + +- + *Each stage assumes the associated GFR level has been in effect for at least three months.Stages 1 to 5, with or without kidney disease, indicate chronic kidney disease. Notes: Determination of stages one and two (with eGFR >59mL/min/1.73 m2) requires estimation of kidney damage for at least three months as defined by structural or functional abnormalities of the kidney, manifested by either: Pathological abnormalities or Markers of kidney damage (including abnormalities in the composition of the blood or urine or abnormalities in imaging tests). Performing Organization Address City/State/Zipcode Phone Number [facility] CLIA: [id number], [address] [place] [address] POCT TEST (04/14/2019) POCT PREG Negative On [...] lower quadrant Vomiting and diarrhea Vomiting alone Colitis Other and unspecified noninfectious gastroenteritis and colitis documented in this encounter Insurance Payer Benefit Plan / Subscriber ID Effective Phone Address Type Group Dates [facility] - [id number] 2016-Pres [phone] [address] PPO/POS OUT OF STATE ent [id number] [place] [address] [facility] [id number] 2017-Pres PPO/POS HEALTHCARE HEALTHCARE ent PPO/POS CIGNA CIGNA II [id number] 2018-Pres HMO/PPO/ ent POS documented as of this encounter Advance Directives Name Relationship Healthcare Agent Relationship Communication Jamil Rudolph Spouse Primary healthcare agent Cherie Baldwin Mother First alternate healthcare [phone] agent (Mobile)
--- OUTSIDE RECORDS SUMMARY | 2019-08-26 16:54 | XMS REPORT | Summary of Care ---
:1995 Author Organization [facility] Address [address] [place] [id number] Care Team Providers Name Role Phone Santa Stanleytany MEDIA SERVICES DIRECTOR Primary Care Provider Reason for Referral MRI/CAT Scan (PREM) Status Reason Specialty Diagnoses / Referred By Referred To Procedures Contact Contact New Request Diagnostic Diagnoses RLQ abdominal pain Lizeth, Radiology Procedures CT ABDOMEN PELVIS W CONTRAST Monae, MEDIA SERVICES DIRECTOR [address] [place] [address] MRI/CAT Scan (PREM) Status Reason Specialty Diagnoses / Referred By Referred To Procedures Contact Contact New Request Diagnostic Diagnoses RLQ abdominal pain Lizeth, Radiology Procedures CT ABDOMEN PELVIS W CONTRAST Monae, MEDIA SERVICES DIRECTOR [address] [place] [address] MRI/CAT Scan (PREM) Status Reason Specialty Diagnoses / Referred By Referred To Procedures Contact Contact Closed Diagnostic Diagnoses RLQ abdominal pain Vomiting and diarrhea Lizeth, Radiology Procedures CT ABDOMEN PELVIS WO CONTRAST CHG CT SCAN,ABDOMENT AND PELVIS,W/O CONTRAST CHG CT SCAN,ABDOMENT AND PELVIS,W CONTRAST Monae, MEDIA SERVICES DIRECTOR [address] [place] [address] MRI/CAT Scan (PREM) Status Reason Specialty Diagnoses / Referred By Referred To Procedures Contact Contact Closed Diagnostic Diagnoses RLQ abdominal pain Vomiting and diarrhea Lizeth, Radiology Procedures CT ABDOMEN PELVIS WO CONTRAST CHG CT SCAN,ABDOMENT AND PELVIS,W/O CONTRAST CHG CT SCAN,ABDOMENT AND PELVIS,W CONTRAST Monae, MEDIA SERVICES DIRECTOR [address] [address] Reason for Visit MRI/CAT Scan (PREM) Status Reason Specialty Diagnoses / Referred By Referred To Procedures Contact Contact Closed Diagnostic Diagnoses RLQ abdominal pain Vomiting and diarrhea Lizeth, Radiology Procedures CT ABDOMEN PELVIS WO CONTRAST CHG CT SCAN,ABDOMENT AND PELVIS,W/O CONTRAST CHG CT SCAN,ABDOMENT AND PELVIS,W CONTRAST Monae, MEDIA SERVICES DIRECTOR [address] [address] Encounter Details Date Type Department Care Team Description 04/14/2019 Hospital Encounter [facility] Lizeth, Monae, Arrived [employer] MEDIA SERVICES DIRECTOR Tomography [address] [address] [place] [address] [phone] Allergies No Known Allergiesdocumented as of this encounter (statuses as of 04/15/2019) Medications Medication Sig Dispensed Refills Start Date End Date Status proMETHazine 12.5 mg Take 1 tablet by 20 tablet 0 04/12/2019 Active tabletIndications: mouth every 6 Non-intractable (six) hours as vomiting with nausea, needed for Nausea unspecified vomiting and Vomiting type (N/V). documented as of this encounter (statuses as of 04/15/2019) Active Problems Problem Noted Date Status post surgical removal of both fallopian tubes 05/08/2018 Acute midline low back pain with left-sided sciatica 04/23/2018 Pelvic adhesions 04/18/2018 History of ectopic 04/18/2018 Anemia of mother in , antepartum 08/08/2017 Substernal chest pain 08/08/2017 Family history of cleft palate 01/17/2017 documented as of this encounter (statuses as of 04/15/2019) Resolved Problems Problem Noted Date Resolved Date [...] as of this encounter (statuses as of 04/15/2019) Immunizations Name Administration Dates Next Due Influenza [...] filedocumented in this encounter Plan of Treatment Name Type Priority Associated Diagnoses Order Schedule CT ABDOMEN PELVIS WO IMAGING PREM RLQ abdominal pain 1 Occurrences starting CONTRAST Vomiting and diarrhea 04/14/2019 until 04/14/2019 Health Maintenance Due Date Last Done Comments PNEUMOCOCCAL 0-64 YEARS COMBINED SERIES (1 of 1 - 12/22/1999 PPSV23) HPV VACCINES (1 - Female 3-dose series) 2008 PAP SMEAR 2014 INFLUENZA VACCINE (#1) 2019 05/09/2017 DTaP,Tdap,and Td Vaccines (2 - Td) 07/10/2027 07/10/2017 documented as of this encounter Procedures Procedure Name Priority Date/Time Associated Diagnosis Comments CT ABDOMEN PELVIS W PREM 04/14/2019 1:59 PM RLQ abdominal pain Results for this CONTRAST CDT procedure are in the results section. documented [...] Performing Organization Address City/State/Zipcode Phone Number PACS/VR/DOSE documented in this encounter Visit Diagnoses Diagnosis RLQ abdominal pain Abdominal pain, right lower quadrant Vomiting and diarrhea Vomiting alone documented in this encounter Administered Medications Medication Order MAR Action Action Date Dose Rate Site iohexol (OMNIPAQUE 350 BULK) 25 mL Given 04/14/2019 12:45 PM CDT 25 mL 25 mL, Oral, ONCE, 1 dose, Sun04/14/19 at 1245, Routine iohexol (OMNIPAQUE 350 BULK-150 mL) Given 04/14/2019 1:58 PM CDT 120 mL injection 120 mL 120 mL, Intravenous, ONCE, 1 dose, Sun04/14/19 at 1345, Routine documented in this encounter Insurance Payer Benefit Plan / Subscriber ID Effective Phone Address Type Group Dates [facility] - [id number] 2016-Pres [phone] [address] PPO/POS OUT OF STATE ent [id number] [place] [address] [facility] [id number] 2017-Pres PPO/POS HEALTHCARE HEALTHCARE ent PPO/POS CIGNA CIGNA II [id number] 2018-Pres HMO/PPO/ ent POS documented as of this encounter Advance Directives Name Relationship Healthcare Agent Relationship Communication Jamil Ronni Spouse Primary healthcare agent Cherie Nicolasa Mother [facility] healthcare [phone] agent (Mobile)
[2019-08-26 17:50] LABS: Absolute Lymphocytes (CBC) 2.9 K/uL (0.7-4.9); Basophils % 0.5 % (0-1.3); Hematocrit 38.8 % (36.0-45.0); Lymphocytes % 30.1 % (15.3-44.8); MPV 8.8 fL (7.6-11.3); RBC Red Blood Cell Count 4.65 M/uL (3.86-4.86)
[2019-08-26 17:51] LABS: Barbiturates NEGATIVE (NEGATIVE); Benzodiazepines NEGATIVE (NEGATIVE); Cocaine NEGATIVE (NEGATIVE); METHAMPHETAM NEGATIVE (NEGATIVE); Methadone NEGATIVE (NEGATIVE); Opiates NEGATIVE (NEGATIVE); Phencyclidine NEGATIVE (NEGATIVE); THC Cannibis POSITIVE (NEGATIVE)
[2019-08-26 17:58] LABS: Protime INR 1.06
[2019-08-26 18:16] LABS: ALT/SGPT 20 U/L (12-78); AST/SGOT 11 U/L (15-37); Alkaline Phosphatase 36 U/L (45-117); BUN Blood Urea Nitrogen 9 mg/dL (7-18); Bicarbonate 29 mmol/L (21-32); Bilirubin Direct 0.2 mg/dL (0-0.2); Bilirubin Total 0.5 mg/dL (0.2-1.0); Glucose Level 112 mg/dL (74-106); Potassium 3.4 mmol/L (3.5-5.1); Protein, Total 7.1 g/dL (6.4-8.2); Sodium Level 140 mmol/L (136-145)
[2019-08-26 20:06] LABS: Urine Blood 1+ (NEG); Urine Glucose NEGATIVE (NEG); Urine Protein NEGATIVE (NEG); Urine Specific Gravity 1.025 (1.005-1.030); Urine pH 6.5 (5.0-7.0)
--- NOTE | 2019-08-26 22:31 | ER ---
Nurse's Notes [facility] Name: Cameron Rudolph Age: 23 yrs Sex: Female : 1995 Arrival Date: 08/26/2019 Time: 16:50 Bed 17 Private MD: Diagnosis: Suicidal ideations Presentation: 08/26 16:59 Presenting complaint: Patient states: "I was told if I need psychiatric help, that I ca1 can come to the ER. I just don't want to be here anymore". Reports previous attempts with knives and razors. Pt is crying at this time. Transition of care: patient was not received from another setting of care. Onset of symptoms was August 26, 2019. Risk Assessment: Do you want to hurt yourself or someone else? Patient reports desire/thoughts of hurting themselves or someone else. Provider notified. Initial Sepsis Screen: Does the patient meet any 2 criteria? No. Patient's initial sepsis screen is negative. Does the patient have a suspected source of infection? No. Patient's initial sepsis screen is negative. Care prior to arrival: None. 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 - Coronavirus screen:: The patient has NOT traveled to [place], [place], or [place] in the past 14 days. The patient has NOT had contact with known/suspected case of Coronavirus?. - Social history:: Smoking status: Patient reports the use of cigarette tobacco products, 5 cigarettes a day. - Ebola Screening: : Patient negative for fever greater than or equal to 101.5 degrees Fahrenheit, and additional compatible Ebola Virus Disease symptoms Patient denies exposure to infectious person Patient denies travel to an Ebola-affected area in the 21 days before illness onset No symptoms or risks identified at this time. Screenin:15 Abuse screen: Denies threats or abuse. Denies injuries from another. Nutritional sv screening: No deficits noted. Tuberculosis screening: No symptoms or risk factors identified. Fall Risk None identified. Assessment: 17:15 General: Appears in no apparent distress. comfortable, slender, Behavior is calm, sv cooperative, appropriate for age. Pain: Denies pain. Neuro: Level of Consciousness is awake, alert, obeys commands, Oriented to person, place, time, situation, Moves all extremities. Full function Gait is steady, Speech is normal. Respiratory: Airway is patent Respiratory effort is even, unlabored, Respiratory pattern is regular, symmetrical. Derm: Skin is pink, warm \\T\\ dry. Injury Description: Laceration sustained to left arm is superficial, not bleeding, no active bleeding noted at this time. 18:00 Reassessment: Patient appears in no apparent distress at this time. No changes from sv previously documented assessment. Patient and/or family updated on plan of care and expected duration. Pain level reassessed. Patient is alert, oriented x 3, equal unlabored respirations, skin warm/dry/pink. 19:00 Reassessment: Patient appears in no apparent distress at this time. Patient and/or jb4 family updated on plan of care and expected duration. Pain level reassessed. Patient is alert, oriented x 3, equal unlabored respirations, skin warm/dry/pink. 23:06 Reassessment: Patient appears in no apparent distress at this time. Patient and/or jb4 family updated on plan of care and expected duration. Pain level reassessed. Patient is alert, oriented x 3, equal unlabored respirations, skin warm/dry/pink. Pt transferred receiving facility by [facility]. Psych: 17:15 Subjective: Patient's mood is sad, Having thoughts of suicide. Plan for suicide is "I'm sv not really sure, but I do this (pt lifts up her shirt and has superficial arm lacerations)". Objective: Patient is cooperative, Speech is normal, Affect is appropriate, Patient has mutilated themselves by cutting herself with razors at home. Interventions: Removed personal items and placed in bag. Patient placed in hospital gown. Searched person for dangerous items. Urine collected and sent for urine drug test. Patient reassessed during use of restraints. Patient is physically safe. Patient's cardiac status is stable. Patient's respirations are even and unlabored. Patient has good circulation in all extremities as indicated by capillary refill < 3 seconds. Patient's ROM assessed and is intact. Patient nutrition and hydration needs will continue to be monitored and addressed. Patient hygiene and elimination needs met. Patient assessed for signs of distress. Patient remains reasonably comfortable at this time. Suicide Risk Assessment: Sad Person Scale: Sex of patient: Female: Score 0 points. Age of patient: Score 1 point if patient 15-34. Depression: Score 1 point if signs of depression are present. Previous Attempt: Score 1 point if patient has previously attempted suicide. Substance Abuse: Score 1 point if patient abuses alcohol or drugs. Rational Thinking: Score 0 point if patient has rational thinking. Social Support: Score 1 point if social support is lacking and/or unavailable. Organized Plan: Score 1 point if patient had a plan in place. Relationship: Score 1 point if patient is , , , or for a single male Chronic Sickness: Score 0 point if patient does not have a chronic illness, debilitating, or severe disorder. TOTAL POINTS: If total points are 7-10, the proposed clinical action is to hospitalize or commit. Implement suicide precautions. Safety Checks: Personal items have been removed. Door is open. No visitors are present at this time. Patient uses marijuana. Commitment: Patient will be a voluntary commitment. Vital Signs: 17:02 BP 127 / 96; Pulse 87; Resp 17 S; Temp 97.8(TE); Pulse Ox 98% on R/A; Weight 45.36 kg ca1 (R); Height 5 ft. 3 in. (160.02 cm) (R); 22:24 BP 103 / 63; Pulse 74; Resp 16; Temp 98.4(O); Pulse Ox 99% on R/A; mt 17:02 Body Mass Index 17.71 (45.36 kg, 160.02 cm) ca1 ED Course: 16:50 Patient arrived in ED. as 17:01 Triage completed. ca1 17:02 Arm band placed on right wrist. ca1 17:02 Safety checks: Items removed: yes. Door open/sign placed on door: yes. Family/friend mh5 present: no. Sitter present: Yes. 17:04 Ming Moore FNP-C is [facility]. la1 17:04 Leobardo Vazquez MD is Attending Physician. la1 17:46 Initial lab(s) drawn, by me, sent to lab. Urine collected: clean catch specimen, clear. mh5 Missed attempt(s): 22 gauge in left antecubital area. 17:47 Patient has correct armband on for positive identification. Placed in gown. Bed in low mh5 position. Warm blanket given. 17:49 Acetaminophen Sent. 5 17:50 Basic Metabolic Panel Sent. 5 17:50 CBC with Diff Sent. 5 17:50 ETOH Level Sent. 5 17:50 Hepatic Function Sent. 5 17:50 PT-INR Sent. 5 17:50 Ptt, Activated Sent. 5 17:50 Salicylate Sent. 5 17:51 Urine Drug Screen Sent. [facility] 17:53 Nicole Mclean, RN is Primary Nurse. 18:00 Awaiting lab results. 18:28 notified [facility] to send a screener to evaluate pt. 18:41 Diet: Patient given a regular meal tray. [facility] 19:00 Report given to Artur ROSALES. 19:33 Primary Nurse role handed off by Nicole Mclean, CONNIE 20:30 [place] with [facility] at bedside. vt 22:15 John Flores, RN is Primary Nurse. jb4 23:06 No provider procedures requiring assistance completed. Patient did not have IV access jb during this emergency room visit. Administered Medications: No medications were administered Outcome: 22:31 ER care complete, transfer ordered by MD. alonso 23:06 Transferred by ground EMS [facility]. to other acute care facility: [facility]. jb4 23:06 Condition: stable 23:06 Discharge instructions given to patient, friend, Instructed on the need for transfer, Demonstrated understanding of instructions. 23:12 Patient left the ED. jb4 Signatures: Dahiana Marina Stephanie, RN Milagros Pabon Lee, INTERLOCKER-C INTERLOCKER-Cla1 John Flores, RN Shabana Tracy Rosalba Ivy vt Marce Farrell RN CONNIE ca1
--- NOTE | 2019-08-26 22:31 | EDPHYS ---
Physician Documentation [facility] Name: Cameron Rudolph Age: 23 yrs Sex: Female : 1995 Arrival Date: 08/26/2019 Time: 16:50 Bed 17 Private MD: ED Physician Leobardo Vazquez HPI: 08/26 17:16 This 23 yrs old Female presents to ER via Ambulatory with complaints of la1 Suicidal Ideation. 17:16 The patient presents to the emergency department with anxiety, over a , over a la1 relationship, depression, suicide ideation, but the patient has no formulated plan. Onset: The symptoms/episode began/occurred at an unknown time. and became worse. Past psychiatric history: Prior diagnosis: depression, Psychiatric medications include: none, the patient has had a prior suicide gesture, where the patient cut wrists, the patient does not have a previous inpatient psychiatric history. Associated signs and symptoms: Pertinent positives; substance abuse, suicide ideation, Pertinent negatives: delusions, hallucinations, homicidal ideation. Severity of symptoms: At their worst the symptoms were moderate in the emergency department the symptoms are unchanged. It is unknown whether or not the patient has had similar symptoms in the past. pt reports she has been going through a hard time with a divorce and losing a close friend, have thoughts of hurting herself, superficial cuts to left forearm. Pt denies prior inpatient treatment, use to see a doctor and take seroquel but it was not helping after three months so she stopped taking it, admits to using marijuana. 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 - Coronavirus screen:: The patient has NOT traveled to [place], [place], or [place] in the past 14 days. The patient has NOT had contact with known/suspected case of Coronavirus?. - Social history:: Smoking status: Patient reports the use of cigarette tobacco products, 5 cigarettes a day. - Ebola Screening: : Patient negative for fever greater than or equal to 101.5 degrees Fahrenheit, and additional compatible Ebola Virus Disease symptoms Patient denies exposure to infectious person Patient denies travel to an Ebola-affected area in the 21 days before illness onset No symptoms or risks identified at this time. ROS: 17:18 Constitutional: Negative for fever, chills, and weight loss, Eyes: Negative for injury, la1 pain, redness, and discharge, Neck: Negative for injury, pain, and swelling, Cardiovascular: Negative for chest pain, palpitations, and edema, Respiratory: Negative for shortness of breath, cough, wheezing, and pleuritic chest pain, Abdomen/GI: Negative for abdominal pain, nausea, vomiting, diarrhea, and constipation, Back: Negative for injury and pain, MS/Extremity: Negative for injury and deformity, Skin: Negative for injury, rash, and discoloration, Neuro: Negative for headache, weakness, numbness, tingling, and seizure. 17:18 Psych: Positive for suicidal ideation. Exam: 17:19 Constitutional: This is a well developed, well nourished patient who is awake, alert, la1 and in no acute distress. Head/Face: Normocephalic, atraumatic. Eyes: Pupils equal round and reactive to light, extra-ocular motions intact. Lids and lashes normal. Conjunctiva and sclera are non-icteric and not injected. Cornea within normal limits. Periorbital areas with no swelling, redness, or edema. ENT: Mucous membranes moist. Neck: Trachea midline, Chest/axilla: Normal chest wall appearance and motion. Nontender with no deformity. No lesions are appreciated. Cardiovascular: Regular rate and rhythm with a normal S1 and S2. Respiratory: Lungs have equal breath sounds bilaterally, clear to auscultation Abdomen/GI: Soft, non-tender, with normal bowel sounds. Back: No spinal tenderness. No costovertebral tenderness. Full range of motion. MS/ Extremity: Pulses equal, no cyanosis. Neurovascular intact. Full, normal range of motion. Neuro: Awake and alert, GCS 15, oriented to person, place, time, and situation. Cranial nerves II-XII grossly intact. Motor strength 5/5 in all extremities. Sensory grossly intact. Cerebellar exam normal. Normal gait. 17:19 Psych: Behavior/mood is suicidal, depressed, Affect is calm, Oriented to person, place, time, Patient having thoughts of suicide. Denies suicidal plan. Judgement / Insight is normal. Memory is normal. Delusions/hallucinations are not present. Vital Signs: 17:02 BP 127 / 96; Pulse 87; Resp 17 S; Temp 97.8(TE); Pulse Ox 98% on R/A; Weight 45.36 kg ca1 (R); Height 5 ft. 3 in. (160.02 cm) (R); 22:24 BP 103 / 63; Pulse 74; Resp 16; Temp 98.4(O); Pulse Ox 99% on R/A; mt 17:02 Body Mass Index 17.71 (45.36 kg, 160.02 cm) ca1 MDM: 17:04 Patient medically screened. la1 22:29 Data reviewed: vital signs, nurses notes, lab test result(s), EKG, and as a result, I la1 will admit patient. Data interpreted: Pulse oximetry: on room air is 100 %. Interpretation: normal. Counseling: I had a detailed discussion with the patient and/or guardian regarding: the historical points, exam findings, and any diagnostic results supporting the discharge/admit diagnosis, lab results, the need to transfer to another facility, [facility] does not immediately have the required specialist. ED course: [facility] recommends inpatient treatment. 08/26 17:15 Order name: Acetaminophen; Complete Time: 20:08/26 17:15 Order name: Basic Metabolic Panel; Complete Time: 20:08/26 17:15 Order name: CBC with Diff; Complete Time: 17:58 ak08/26 17:15 Order name: ETOH Level; Complete Time: 20:08/26 17:15 Order name: Hepatic Function; Complete Time: 20:08/26 17:15 Order name: PT-INR; Complete Time: 20: ak08/26 17:15 Order name: Ptt, Activated; Complete Time: 20:08/26 17:15 Order name: Salicylate; Complete Time: 20:08/26 17:15 Order name: Urine Drug Screen; Complete Time: 17:58 ak08/26 17:15 Order name: EKG; Complete Time: 17:16 ak08/26 17:48 Order name: Diet Regular; Complete Time: 17:48 [facility] 08/26 18:44 Order name: Diet Regular: VEGITARIAN MEALS PLEASE; Complete Time: 18:44 mh5 08/26 18:45 Order name: Urine Dipstick--Ancillary (enter results); Complete Time: 20:09 bd 08/26 18:45 Order name: Urine --Ancillary (enter results); Complete Time: 20:09 bd 08/26 17:15 Order name: Urine Test (obtain specimen); Complete Time: 17:50 la1 08/26 17:15 Order name: EKG - Nurse/Tech; Complete Time: 18:00 la1 08/26 17:15 Order name: IV Saline Lock; Complete Time: 17:53 la1 08/26 17:15 Order name: Labs collected and sent; Complete Time: 17:51 la1 08/26 17:15 Order name: Urine Dipstick-Ancillary (obtain specimen); Complete Time: 17:51 la Administered Medications: No medications were administered Disposition: 08/27 07:18 Co-signature as Attending Physician, Leobardo Vazquez MD I agree with the assessment and estella plan of care. Disposition: 08/26/19 22:31 Transfer ordered to Other Acute Care Facility. Diagnosis is Suicidal ideations. - Reason for transfer: Higher level of care. - Accepting physician is Dr. Bunny Manzanares. - Condition is Stable. - Problem is new. - Symptoms are unchanged. Signatures: Dispatcher [employer] Leobardo Horta MD MD cha Attema, Lee, SOLE ASSESSOR-C SOLE ASSESSOR-Cla1 John Flores RN RN jb4 Marce Farrell RN RN ca1 Corrections: (The following items were deleted from the chart) 08/26 23:12 22:31 08/26/2019 22:31 Transfer ordered to Other Acute Care Facility. Diagnosis is jb4 Suicidal ideations. Reason for transfer: Higher level of care. Accepting physician is Dr. Bunny Manzanares. Condition is Stable. Problem is new. Symptoms are unchanged. la1
[2019-08-26 23:26] VITALS: BP 103/63; TEMP 98.4; O2SAT 99
--- NOTE | 2019-08-27 06:39 | EKG ---
Test Date: 2019-08-26 Test Time: 18:03:04 Pepper Cutter: BOB MEASUREMENT RESULTS: Intervals: Rate: 65 MO: 142 QRSD: 84 QT: 396 QTc: 411 [place]: P: 67 MO: 142 QRS: 60 T: 47 INTERPRETIVE STATEMENTS: Normal sinus rhythm Normal ECG No previous ECG available for comparison Electronically Signed On 08-27-19 06:38:28 COOPERATIVE EDUCATION DIRECTOR by Edilberto Madison
== END 2019-08-26 23:12 ==
LOC: ER 16:48
DX: R45.851 Suicidal ideations (principal); F17.210 Nicotine dependence, cigarettes, uncomplicated
CPT/HCPCS: 36415; 80048; 80076; 80307; 80320; 80329; 81003; 81025; 85025; 85610; 85730; 93005; 99285

== ENCOUNTER 2020-12-21 13:33 | Emergency (ER) | payer BC, OTHER ==
--- OUTSIDE RECORDS SUMMARY | 2020-12-21 13:35 | XMS REPORT | Continuity of Care Document ---
:1995 Author Organization [facility] t Address [address] [place] [address] Care Team Providers Name Role Phone Lizeth CYANIDE POT HARDENER Attending Clinician Problems This patient has no known problems. Allergies, Adverse Reactions, Alerts This patient has no known allergies or adverse reactions. Medications This patient has no known medications. Procedures This patient has no known procedures. Encounters Start End Encounter Admission Attending Care Care Encounter Source Date/Time Date/Time Type Type Clinicians Facility Department ID 2020-11-04 2020-11-04 Office [facility] [id number] 08:03:23 08:57:25 Visit Monae Sweetser [id number] [place] [id number] Professio [id number] [place] [address] Building 2020-11-04 2020-11-04 Telephone [facility] [id number] 00:00:00 00:00:00 [facility] [id number] [place] [id number] Professio [phone] [place] [address] Office [address] One Results This patient has no known results.
[2020-12-21 14:15] LABS: Urine Blood 1+ (Negative); Urine Glucose Negative (Negative); Urine Protein Negative (Negative); Urine Specific Gravity 1.015 (1.005-1.030)
[2020-12-21 14:16] LABS: Absolute Lymphocytes (CBC) 3.1 K/uL (0.7-4.9); Basophils % 0.5 % (0-1.3); Hematocrit 40.5 % (36.0-45.0); Lymphocytes % 24.8 % (15.3-44.8); MPV 8.8 fL (7.6-11.3)
[2020-12-21 14:29] LABS: BUN Blood Urea Nitrogen 6 mg/dL (7-18); Bicarbonate 27 mmol/L (21-32); Glucose Level 97 mg/dL (74-106); Potassium 3.5 mmol/L (3.5-5.1); Sodium Level 140 mmol/L (136-145)
[2020-12-21] MEDS ORDERED: ACETAMINOPHEN 325 MG TABLET ONE (14:35)
[2020-12-21] MEDS ORDERED: KETOROLAC 30 MG/ML INJ ONE (14:36)
[2020-12-21] MEDS ORDERED: NA CHLORIDE 0.9% 500 ML ONE (14:37)
--- NOTE | 2020-12-21 15:56 | ER ---
Nurse's Notes [facility] Name: Cameron Rudolph Age: 25 yrs Sex: Female : 1995 Arrival Date: 12/21/2020 Time: 13:39 Bed 13 Private MD: Diagnosis: Abnormal uterine and vaginal bleeding, unspecified Presentation: 12/21 13:45 Coronavirus screen: Client denies travel out of the [place] in the last 14 days. At this ll1 time, the client does not indicate any symptoms associated with coronavirus-19. Ebola Screen: Patient denies travel to an Ebola-affected area in the 21 days before illness onset. Initial Sepsis Screen: Does the patient meet any 2 criteria? No. Patient's initial sepsis screen is negative. Does the patient have a suspected source of infection? Yes: Other: VAG BLEED/SPOTTING. Risk Assessment: Do you want to hurt yourself or someone else? Patient reports no desire to harm self or others. Onset of symptoms was December 20, 2020. 13:45 Method Of Arrival: Ambulatory ll1 13:45 Acuity: ELISE 3 ll1 13:49 Chief complaint: Patient states: Spotting yesterday. Started having cramping with ll1 vaginal bleeding (passed a clot) today. 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 - Social history:: Smoking status: Patient reports the use of cigarette tobacco products, smokes one-half pack cigarettes per day. Screenin:48 Abuse screen: Denies threats or abuse. Denies injuries from another. Nutritional zb screening: No deficits noted. Tuberculosis screening: No symptoms or risk factors identified. Fall Risk None identified. No fall in past 12 months (0 pts). No secondary diagnosis (0 pts). IV access (20 points). Ambulatory Aid- None/Bed Rest/Nurse Assist (0 pts). Gait- Normal/Bed Rest/Wheelchair (0 pts) Mental Status- Oriented to own ability (0 pts). Total Sierra Fall Scale indicates No Risk (0-24 pts). Assessment: 14:23 General: Appears in no apparent distress. Behavior is calm, cooperative, appropriate kg for age, quiet. Pain: Complains of pain in face and abdomen Pain does not radiate. Pain currently is 7 out of 10 on a pain scale. at worst was 8 out of 10 on a pain scale. level that patient reports is acceptable is 3 out of 10 on a pain scale. Quality of pain is described as aching, crampy, squeezing, Pain began This AM. Neuro: No deficits noted. Level of Consciousness is awake, alert, obeys commands, Oriented to person, place, time, situation. Cardiovascular: No deficits noted. Respiratory: No deficits noted. GI: No deficits noted. : Vaginal clots Reports cramping, lower quadrant(s) pain vaginal bleeding that is bright red, with clots, heavy flow. EENT: No deficits noted. Derm: No deficits noted. Musculoskeletal: No deficits noted. Vital Signs: 13:45 BP 118 / 86; Pulse 88; Resp 17; Temp 98.7; Pulse Ox 97% on R/A; Weight 49.9 kg; Height ll1 5 ft. 3 in. (160.02 cm); Pain 5/10; 14:00 BP 123 / 84; Pulse 64; Resp 16; Pulse Ox 100% on R/A; zb 15:00 BP 117 / 84; Pulse 70; Resp 20; Pulse Ox 100% on R/A; zb 16:20 BP 117 / 84; Pulse 70; Resp 20; Pulse Ox 100% ; kg 13:45 Body Mass Index 19.49 (49.90 kg, 160.02 cm) ll1 ED Course: 13:39 Patient arrived in ED. mr 13:40 Leobardo Rutherford PA is PHCP. cp 13:40 Les Stanford MD is Attending Physician. cp 13:45 Arm band placed on Patient placed in an exam room, on a stretcher. ll1 13:48 Triage completed. ll1 13:48 Irish James is Primary Nurse. kg 15:17 US Transvaginal Study (Probe) In Process Unspecified. EDMS 15:49 Patient has correct armband on for positive identification. Placed in gown. Bed in low zb position. Call light in reach. Side rails up X 1. 16:31 No provider procedures requiring assistance completed. IV discontinued, intact, kg bleeding controlled, No redness/swelling at site. Pressure dressing applied. Administered Medications: 14:22 Drug: Tylenol 650 mg Route: PO; kg 15:20 Follow up: Response: No adverse reaction; Marked relief of symptoms kg 14:23 Drug: NS 0.9% 500 ml Route: IV; Rate: bolus; Site: left antecubital; kg 15:45 Follow up: Response: No adverse reaction; Marked relief of symptoms; IV Status: kg Completed infusion; IV Intake: 1000ml 14:23 Drug: TORadol - (ketorolac) 15 mg Route: IVP; Site: left antecubital; kg 15:30 Follow up: Response: No adverse reaction; Marked relief of symptoms kg Intake: 15:45 IV: 1000ml; Total: 1000ml. kg Outcome: 15:56 Discharge ordered by MD. cp 16:31 Discharged to home ambulatory, with friend. kg 16:31 Condition: improved 16:31 Discharge instructions given to patient, Instructed on discharge instructions, follow up and referral plans. Demonstrated understanding of instructions, follow-up care, medications, Prescriptions given X 1. 16:32 Patient left the ED. kg Signatures: Dispatcher [employer] EDMS Lila Cee Corey, PA PA cp Lewis, Lynsay RN RN ll1 Va Guo RN RN Irish Dos Santos kg
--- NOTE | 2020-12-21 15:56 | EDPHYS ---
Physician Documentation [facility] Name: Cameron Rudolph Age: 25 yrs Sex: Female : 1995 Arrival Date: 12/21/2020 Time: 13:39 Bed 13 Private MD: ED Physician Les Stanford HPI: 12/21 14:00 This 25 yrs old Female presents to ER via Ambulatory with complaints of cp Vaginal Bleeding. 14:00 The patient presents with vaginal bleeding that is with clots. Onset: The cp symptoms/episode began/occurred yesterday. 14:00 Associated signs and symptoms: Pertinent positives: cramping. cp 14:00 The patient is sexually active, patient reports having "rough intercourse" recently. 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 - Social history:: Smoking status: Patient reports the use of cigarette tobacco products, smokes one-half pack cigarettes per day. ROS: 14:05 : Positive for vaginal bleeding, Negative for urinary symptoms. cp 14:05 Eyes: Negative for injury, pain, redness, and discharge. cp 14:05 Constitutional: Negative for body aches, chills, fever, poor PO intake. 14:05 Respiratory: Negative for shortness of breath, wheezing. 14:05 Abdomen/GI: Positive for abdominal cramps, Negative for nausea, vomiting, and diarrhea. 14:05 Neuro: Negative for altered mental status, headache, syncope, weakness. 14:05 All other systems are negative. Exam: 14:10 Constitutional: The patient appears in no acute distress, alert, awake, non-toxic, well cp developed, well nourished. 14:10 Head/Face: Normocephalic, atraumatic. cp 14:10 Eyes: Periorbital structures: appear normal, Conjunctiva: normal, no exudate, no cp injection, Sclera: no appreciated abnormality, Lids and lashes: appear normal, bilaterally. 14:10 ENT: External ear(s): are unremarkable, Nose: is normal, Mouth: Lips: moist, Oral mucosa: moist, Posterior pharynx: is normal, airway is patent, no erythema, no exudate. 14:10 Chest/axilla: Inspection: normal, Palpation: is normal, no crepitus, no tenderness. 14:10 Cardiovascular: Rate: normal, Rhythm: regular. 14:10 Respiratory: the patient does not display signs of respiratory distress, Respirations: normal, no use of accessory muscles, no retractions, labored breathing, is not present, Breath sounds: are clear throughout, no decreased breath sounds. 14:10 Abdomen/GI: Inspection: abdomen appears normal, Bowel sounds: active, all quadrants, Palpation: soft, in all quadrants, mild abdominal tenderness, in the right lower quadrant and left lower quadrant, rebound tenderness, is not appreciated, involuntary guarding, is not appreciated. 14:10 Back: CVA tenderness, is absent. Vital Signs: 13:45 BP 118 / 86; Pulse 88; Resp 17; Temp 98.7; Pulse Ox 97% on R/A; Weight 49.9 kg; Height ll1 5 ft. 3 in. (160.02 cm); Pain 5/10; 14:00 BP 123 / 84; Pulse 64; Resp 16; Pulse Ox 100% on R/A; zb 15:00 BP 117 / 84; Pulse 70; Resp 20; Pulse Ox 100% on R/A; zb 16:20 BP 117 / 84; Pulse 70; Resp 20; Pulse Ox 100% ; kg 13:45 Body Mass Index 19.49 (49.90 kg, 160.02 cm) ll1 MDM: 13:53 Patient medically screened. cp 14:00 Differential diagnosis: ectopic , menorrhea, pelvic inflammatory disease, cp postcoital bleeding, urinary tract infection, vaginosis. 15:55 Data reviewed: vital signs, nurses notes, lab test result(s), radiologic studies, cp ultrasound. 15:55 Counseling: I had a detailed discussion with the patient and/or guardian regarding: the cp historical points, exam findings, and any diagnostic results supporting the discharge/admit diagnosis, lab results, radiology results, to return to the emergency department if symptoms worsen or persist or if there are any questions or concerns that arise at home. Response to treatment: the patient's symptoms have markedly improved after treatment, VSS. Pain improved. Will discharge to home for continued monitoring. 12/21 13:58 Order name: Basic Metabolic Panel; Complete Time: 15:04 cp 12/21 15:04 Interpretation: Normal except: CL 108; BUN 6. cp 12/21 13:58 Order name: CBC with Diff; Complete Time: 14:18 cp 12/21 14:18 Interpretation: Normal except: WBC 12.40; RBC 4.90; NEUT A 8.5. 12/21 14:14 Order name: Urine Dipstick-Ancillary; Complete Time: 14:18 EDMS 12/21 15:41 Interpretation: Normal except: UBLD 1+. 12/21 14:17 Order name: Urine --Ancillary (enter results) bd 12/21 14:20 Order name: US Transvaginal Study (Probe); Complete Time: 16:30 12/21 13:58 Order name: Urine Test (obtain specimen) 12/21 13:58 Order name: IV Saline Lock 12/21 13:58 Order name: Labs collected and sent 12/21 13:58 Order name: NPO 12/21 13:58 Order name: Urine Dipstick-Ancillary (obtain specimen) Administered Medications: 14:22 Drug: Tylenol 650 mg Route: PO; kg 15:20 Follow up: Response: No adverse reaction; Marked relief of symptoms kg 14:23 Drug: NS 0.9% 500 ml Route: IV; Rate: bolus; Site: left antecubital; kg 15:45 Follow up: Response: No adverse reaction; Marked relief of symptoms; IV Status: kg Completed infusion; IV Intake: 1000ml 14:23 Drug: TORadol - (ketorolac) 15 mg Route: IVP; Site: left antecubital; kg 15:30 Follow up: Response: No adverse reaction; Marked relief of symptoms kg Disposition: 17:25 Co-signature as Attending Physician, Les Stanford MD. rn Disposition: 12/21/20 15:56 Discharged to Home. Impression: Abnormal uterine and vaginal bleeding, unspecified. - Condition is Stable. - Discharge Instructions: Abnormal Uterine Bleeding. - Prescriptions for Ibuprofen 600 mg Oral Tablet - take 1 tablet by ORAL route every 8 hours As needed take with food; 30 tablet. - Medication Reconciliation Form, Thank You Letter, Antibiotic Education, Prescription Opioid Use form. - Follow up: Private Physician; When: 2 - 3 days; Reason: Worsening of condition. - Problem is new. - Symptoms are unchanged. Signatures: Dispatcher [employer] EDLes Garcia MD MD rn Leobardo Rutherford PA PA cp Lewis, Lynsay RN RN ll1 Jacob Irish rashida Corrections: (The following items were deleted from the chart) 15:18 14:00 Onset: The symptoms/episode began/occurred this morning, cp cp 16:32 15:56 12/21/2020 15:56 Discharged to Home. Impression: Abnormal uterine and vaginal kg bleeding, unspecified. Condition is Stable. Forms are Medication Reconciliation Form, Thank You Letter, Antibiotic Education, Prescription Opioid Use. Follow up: Private Physician; When: 2 - 3 days; Reason: Worsening of condition. Problem is new. Symptoms are unchanged. cp
--- NOTE | 2020-12-21 16:04 | RAD REPORT ---
EXAM DESCRIPTION: US - Transvaginal Study Probe - 12/21/2020 3:17 pm CLINICAL HISTORY: VAGINAL BLEEDING COMPARISON: No comparisons TECHNIQUE: Endovaginal sonography was performed. FINDINGS: Endometrial stripe is 7 mm in maximum thickness. No discrete endometrial mass or polyp bassam ntifiable. The endometrium - myometrium interface does appear to be preserved. There is a small amoun t of fluid or old blood seen in the endometrial cavity. Right ovary is seen with normal blood flow identifiable in the stroma. Left ovary was obscured by bow el. No adnexal masses are seen. No blood or fluid in the cul de sac. IMPRESSION: Minimal quantity of fluid or old blood in the endometrial cavity. No endometrial mass or polyp identifiable. No right ovary abnormality seen. Nonvisualization of the left ovary. No adnexal mass.
[2020-12-21 16:38] VITALS: TEMP 98.7
[2020-12-21 16:40] VITALS: O2SAT 100
[2020-12-21 16:42] VITALS: BP 117/84
[2020-12-21 16:52] LABS: Urine Specific Gravity/Preg 1.015 (1.005-1.030)
== END 2020-12-21 16:32 | disposition home or self-care (01) ==
LOC: ER 13:33
DX: N93.9 Abnormal uterine and vaginal bleeding, unspecified (principal); F17.210 Nicotine dependence, cigarettes, uncomplicated
CPT/HCPCS: 85025; 80048; 36415; 81025; 81003; 76830; J7040; 96361; 96374; 99283